=== PATIENT | male | born 1955 | race Caucasian/White ===

== ENCOUNTER 2018-11-07 04:50 | Inpatient (IN) ==
[2018-10-31 09:42] LABS: HEMATOCRIT 49.2 % (42.0-52.0); HEMOGLOBIN 16.5 g/dL (14.0-18.0); MCH 33.1 PG (27-31); MCHC 33.5 g/dL (33-37); MCV 98.6 FL (81-99); MPV 9.3 FL (7.4-10.4); RBC 4.99 XMIL (4.7-6.1); RDW 14.3 % (11.5-14.5); WBC 9.5 X1000 (4.8-10.8)
--- NOTE | 2018-10-31 09:54 | EKG Report ---
Test Performed on : 10/31/2018 09:15:00 AM Test Reason : PAT Blood Pressure : / mmHG Vent. Rate : 082 BPM Atrial Rate : 082 BPM P-R Int : 192 ms QRS Dur : 082 ms QT Int : 354 ms P-R-T Axes : 053 047 056 degrees QTc Int : 413 ms Normal sinus rhythm. Normal ECG When compared with ECG of 05-MAR-2015 08:59, No significant change was found Confirmed by Sim Gonzales MD ([id number]) on 10/31/2018 12:41:10 PM
[2018-10-31 10:16] LABS: AGAP 14; BUN 9 mg/dL (8-22); CALCIUM 9.2 mg/dL (8.8-10.2); CHLORIDE 96 mmol/L (98-107); COSMO 267; CREATININE 1.1 mg/dL (0.7-1.2); ESTIMATED GFR > 60; GLUCOSE 127 mg/dL (70-104); POTASSIUM 4.4 mmol/L (3.5-5.1); SODIUM 133 mmol/L (136-145); TCO2 23 mmol/L (25-35)
[2018-11-07] MEDS ORDERED: LR 1,000 ML ONE (05:45)
[2018-11-07] MEDS ORDERED: KEFZOL 1 GM/D5W 1 GM/50 ML IVPB ONE (05:45)
[2018-11-07] MEDS ORDERED: PAPAVERINE ONE (06:11)
[2018-11-07] MEDS ORDERED: SENSORCAINE-MPF 0.5%/EPI 1:200,000 ONE (06:12)
[2018-11-07] MEDS ORDERED: HEPARIN ONE (06:12)
[2018-11-07] MEDS ORDERED: NS 1,000 ML ONE ×2 (06:12→10:37)
[2018-11-07] MEDS ORDERED: DIPRIVAN 1% ONE (06:20)
[2018-11-07] MEDS ORDERED: FENTANYL ONE ×2 (06:21→10:14)
[2018-11-07] MEDS ORDERED: QUELICIN (DOSE) ONE (06:22)
[2018-11-07] MEDS ORDERED: SODIUM CHLORIDE 0.9% 10 ML ONE (06:22)
[2018-11-07] MEDS ORDERED: XYLOCAINE-MPF 2% ONE (06:22)
[2018-11-07] MEDS ORDERED: NORCURON ONE ×2 (06:22→08:04)
[2018-11-07] MEDS ORDERED: XYLOCAINE 2% JELLY ONE (06:24)
[2018-11-07] MEDS ORDERED: KEFZOL ONE (06:56)
[2018-11-07] MEDS ORDERED: ZOFRAN ONE (07:34)
[2018-11-07] MEDS ORDERED: DECADRON ONE (07:34)
[2018-11-07] MEDS ORDERED: OFIRMEV 1000 MG/ISOTONIC SOLN 1,000 MG/100 ML BOTTLE ONE (07:34)
[2018-11-07] MEDS ORDERED: HEPARIN (DOSE) ONE (08:13)
[2018-11-07 08:18] LABS: URINE SOURCE CATH
[2018-11-07 08:24] LABS: BILIRUBIN URINE NEGATIVE (NEGATIVE); BLOOD URINE NEGATIVE (NEGATIVE); COLOR YELLOW; GLUCOSE URINE 150 mg/dL (NEGATIVE); KETONE URINE 10 mg/dL (NEGATIVE); LEUKOCYTES URINE NEGATIVE (NEGATIVE); NITRITE URINE NEGATIVE (NEGATIVE); PROTEIN URINE NEGATIVE (NEGATIVE); SP GRAVITY URINE 1.011; TURBIDITY URINE CLEAR (CLEAR); UROBILINOGEN URINE NORMAL (NORMAL)
[2018-11-07 08:25] LABS: UR EPITHELIAL CELLS <10 /HPF (<10); URINE BACTERIA NEGATIVE /HPF; URINE RBC <10 /HPF (<10); URINE WBC <10 /HPF (<10)
[2018-11-07] MEDS ORDERED: NEO-SYNEPHRINE ONE (09:19)
[2018-11-07] MEDS ORDERED: NEOSTIGMINE ONE (09:54)
[2018-11-07] MEDS ORDERED: ROBINUL ONE (09:54)
[2018-11-07] MEDS ORDERED: NORCO-10 ONE (10:50)
--- NOTE | 2018-11-07 11:03 | OPERATIVE NOTE ---
PROCEDURE DATE: 11/07/2018 PROCEDURE PERFORMED: Right femoral to posterior tibial in situ vein bypass. SURGEON: Momo Goins MD. REPAIRING CALIBRATOR: LUCINDA Harrington. PREOPERATIVE DIAGNOSIS: Rest pain, right foot. POSTOPERATIVE DIAGNOSIS: Rest pain, right foot. INDICATIONS: This 63-year-old smoker has ischemic rest pain in the right foot. It is erythematous. It is starting to have some ulcers on the toes. He has occluded SFA and popliteal, and he appears to have some runoff in his posterior tibial artery, possibly his peroneal. There is calcium noted at the take-off of both of those vessels. The vein appeared acceptable, even though it did go to 2.1 mm just below the knee. DESCRIPTION OF OPERATION: Satisfactory general endotracheal anesthesia was achieved, the right leg was prepped and draped in a sterile fashion. The foot was excluded. The vein had previously been marked, including the branches. We made a curvilinear incision in the right groin, dissected down to the common femoral artery, surrounded with an umbilical tape. The profunda femoris was surrounded with a large vessel loop. The superficial femoral was occluded. We did not surround it with a vessel loop. Small branches were surrounded with 2-0 silks. The greater saphenous vein was identified. We dissected along the course of the david for a ways where the branches were marked and we identified the branches and ligated them with 3-0 silk ties and clipped them. We marked the vein so we would not twist it. We then turned our attention to the proximal calf and made a longitudinal incision on the medial proximal calf just posterior to the vein david. We carried our dissection into the popliteal fossa. We dissected out the tibioperoneal trunk and then followed the tibioperoneal trunk down to the bifurcation. We identified where the peroneal came off and then the proximal posterior tibia. We had to divide some of the gastrocnemius muscle in order to expose the posterior tibial for a ways. Small veins were clipped and divided so that we could identify the posterior tibial artery and I could palpate where the calcium stopped. We surrounded it with a small vessel loop. We gave the patient 8000 units of heparin systemically. After it circulated for 5 minutes, I then went back to the proximal wound of the groin and then used a Satinsky clamp on the takeoff of the greater saphenous. We amputated it there and oversewed the stump with a 5-0 Prolene stitch in 2 layers. We looked at the opening of the greater saphenous vein. No valve leaflets were identified. We chose a 4-mm punch. We then clamped off the common femoral and occluded flow in the profunda femoris and then chose a spot in the proximal SFA where we incised the artery and extended slightly with the Curtis scissors and used the 4-0 punch twice in order to make a hole adequate to do the proximal anastomosis. We then used a 5-0 Prolene stitch and did the proximal anastomosis, vein to artery. After the completion of the anastomosis, flow was established into the proximal vein, and the first valve appeared to be about 4-5 cm down the vein. One additional stitch was used for complete hemostasis. We then turned our attention distally once again, and we identified the greater saphenous vein in the superior tissue flap above our incision and we identified the vein and exposed it and marked it so we would not twist it. We identified a branch. In here, we did a small venotomy in the branch and slid our Glidewire into the artery all the way up through the proximal anastomosis. We then followed with the LeMaitre expandable valvulotome over the wire. We gently passed it up to the proximal anastomosis. We did not cross the proximal anastomosis, and opened the valvulotome and then gently pulled it down the vein, lysing the valves as we came. We did it a 2nd time and had excellent pulsatile flow. We then removed it along with the wire, and clipped off the vein at this point, and divided it and then mobilized the vein to the proximal end of the incision so that we could swing it down to the artery. We really had no extra vein length to bring it down to the artery right below the calcium. We then occluded flow in the artery with the vessel loop distally and then under 2.5 loupe magnification, I then incised the artery and extended with the Curtis scissors up into the calcified area. We then injected 5 mL of papaverine, which was actually a mixture of 4 mL of papaverine, that is 120 mg diluted to 10 mL. So, we used half of that to inject from proximal in the vein graft and let it percolate inside the vein graft. We then swung the vein graft down to the artery. We clamped off the vein graft with a bulldog clamp at the proximal end of the distal incision and then cut the vein to match the arteriotomy. We then under 2.5 loupe magnification used a 6-0 Prolene stitch beginning at the heel and going around the toe and did the distal anastomosis. Just prior to completion, we passed a 1.5, 2 and 2.5 probe down the artery and got back-bleeding from the posterior tibial artery. We flushed the vein graft and still pulsatile flow was present. We then finished the anastomosis and flow was established. One additional 6-0 Prolene stitch was used to achieve complete hemostasis. Since the vein had been marked preoperatively, no branches were noted in the thigh region that we had not already dealt with, so we did not shoot an arteriogram or seek any further branches in the thigh since they had already been marked. Good pulse was noted within the vein graft as well as the posterior tibial artery just past the anastomosis. Hemostasis appeared satisfactory. We irrigated both wounds and closed the proximal wound with 2 layers of 2-0 Polysorb in the subcutaneous tissue. We used 1 layer of 2-0 Polysorb in the distal wound in the subcutaneous tissue. We then closed the skin at each incision with 4-0 Polysorb subcuticular stitches. Sterile dressings were applied. He tolerated it well, was sent to the recovery room in satisfactory condition. cc: Momo Goins MD
[2018-11-07] MEDS ORDERED: ZOFRAN IV PRN (11:18)
[2018-11-07] MEDS: PLAVIX PO SCH (14:23)
[2018-11-07] MEDS: NORCO-10 PO PRN ×3 (14:23→23:24)
[2018-11-07] MEDS: KEFZOL 1 GM/D5W 1 GM/50 ML IVPB IV SCH ×2 (14:50→20:04)
[2018-11-07] MEDS: NS 1,000 ML IV SCH ×2 (14:51→14:53)
[2018-11-07] MEDS: DILAUDID IV PRN ×2 (17:16→20:00)
--- NOTE | 2018-11-07 19:02 | GENERAL SURGERY PROGRESS NOTE ---
DATE: 11/07/2018 TIME SEEN: 6 p.m. Mr. Sanderson has palpable graft pulses. His right foot is warmer. He is more comfortable with his foot. I am pleased with his progress thus far. cc: Momo Goins MD
[2018-11-07] MEDS: PERIDEX MT SCH (20:02)
[2018-11-07] MEDS ORDERED: PLETAL PO SCH (21:00)
[2018-11-08] MEDS: DILAUDID IV PRN ×4 (00:08→20:51)
[2018-11-08] MEDS: NORCO-10 PO PRN ×4 (05:28→22:27)
[2018-11-08 06:43] LABS: BASO# 0.02 X1000 (0.0-0.2); BASO% 0.2 % (0.0-0.8); EOS# 0.03 X1000 (0.0-0.7); EOS% 0.2 % (0.0-10.0); HEMOGLOBIN 11.8 g/dL (14.0-18.0); IMM GRAN# 0.04 X1000 (0.0-0.04); IMM GRAN% 0.3 % (0.0-0.5); LYMPH# 1.61 X1000 (1.2-3.4); LYMPH% 12.9 % (20.5-51.1); MCH 33.3 PG (27-31); MCHC 32.8 g/dL (33-37); MCV 101.7 FL (81-99); MONO# 1.32 X1000 (0.11-0.59); MONO% 10.6 % (1.7-9.3); MPV 9.4 FL (7.4-10.4); NEUT# 9.42 X1000 (1.4-6.5); NEUT% 75.8 % (42.2-75.2); PLT 241 X1000 (130-400); RBC 3.54 XMIL (4.7-6.1); RDW 14.6 % (11.5-14.5); WBC 12.44 X1000 (4.8-10.8)
[2018-11-08 07:14] LABS: AGAP 7; BUN 8 mg/dL (8-22); CALCIUM 7.6 mg/dL (8.8-10.2); CHLORIDE 104 mmol/L (98-107); COSMO 272; CREATININE 0.8 mg/dL (0.7-1.2); ESTIMATED GFR > 60; GLUCOSE 99 mg/dL (70-104); POTASSIUM 3.8 mmol/L (3.5-5.1); SODIUM 137 mmol/L (136-145); TCO2 26 mmol/L (25-35)
[2018-11-08] MEDS ORDERED: NICODERM PATCH TD PRN (07:36)
--- NOTE | 2018-11-08 07:48 | GENERAL SURGERY PROGRESS NOTE ---
DATE: 11/08/2018 SUBJECTIVE: He is postop day 1 for his right femoral to tibial in situ vein bypass. This morning, he said he slept better last night than he did the night before which was prior to the surgery. He is afebrile and his hemodynamics were good. His graft has a pulse. His foot feels reasonably normal. DIAGNOSTICS/LABS: White count today is 12,400, hemoglobin 11.8. Chemistry is fine. PLAN: The plan today will be to remove his Donis catheter. He can get out of bed. We will add Plavix to his regimen. cc: Momo Goins MD
[2018-11-08] MEDS: PLAVIX PO SCH (09:55)
[2018-11-08] MEDS: PERIDEX MT SCH ×2 (09:55→20:51)
[2018-11-08] MEDS: ASPIRIN PO SCH (09:59)
[2018-11-08] MEDS: NS 1,000 ML IV SCH (12:09)
[2018-11-08] MEDS: PRINIVIL PO SCH (14:52)
[2018-11-08] MEDS: NORVASC PO SCH (14:52)
[2018-11-09] MEDS: DILAUDID IV PRN ×4 (02:04→20:08)
[2018-11-09] MEDS: NORCO-10 PO PRN ×3 (06:45→17:37)
[2018-11-09] MEDS: PRINIVIL PO SCH (08:00)
[2018-11-09] MEDS: PERIDEX MT SCH ×2 (08:00→20:08)
[2018-11-09] MEDS: NORVASC PO SCH (08:00)
[2018-11-09] MEDS: ASPIRIN PO SCH (08:00)
[2018-11-09] MEDS: PLAVIX PO SCH (08:00)
[2018-11-09] MEDS: NS 1,000 ML IV SCH (10:40)
[2018-11-09] MEDS ORDERED: SALINE LOCK IV FLUID XX ONE (12:23)
--- NOTE | 2018-11-09 12:57 | GENERAL SURGERY PROGRESS NOTE ---
DATE: 11/09/2018 SUBJECTIVE: He is 2 days postoperative after left femoral tibial in situ vein bypass. OBJECTIVE: Vital signs: He is afebrile, heart rate 84, blood pressure 125/78. Extremities: He has a palpable graft pulse. His right foot is warm. He has been up on it. PLAN: The plan will be to continue his aspirin and Plavix. We will discharge him home tomorrow with the walker. cc: Momo Goins MD
[2018-11-10] MEDS: PLAVIX PO SCH (08:20)
[2018-11-10] MEDS: ASPIRIN PO SCH (08:20)
[2018-11-10] MEDS: NORVASC PO SCH (08:20)
[2018-11-10] MEDS: PERIDEX MT SCH (08:20)
[2018-11-10] MEDS: PRINIVIL PO SCH (08:20)
[2018-11-10] MEDS: NORCO-10 PO PRN (08:20)
--- NOTE | 2018-11-10 14:00 | GENERAL SURGERY PROGRESS NOTE ---
DATE: 11/10/2018 He is 3 days after his right femoral tibial in situ vein bypass. His right foot is significantly warmer. Graft is patent. His wounds were fine. We will allow him to go home today. He will use a walker at home. He is to stay on aspirin and Plavix. He will return to see me in the office in 5 days. cc: Momo Goins MD
--- NOTE | 2018-11-10 15:54 | Extremity Venous Study ---
PROCEDURE NAME: Vein Mapping Right GSV - 11/07/2018 PROCEDURE: Right great saphenous vein mapping. REFERRING PHYSICIAN: Dr. Goins. Outpatient. BACK HAND: Jazmin Meeks RVT. INDICATIONS: Evaluate for right femoral tibial arterial bypass. FINDINGS: The right great saphenous vein was compressible throughout its length without evidence of thrombus. It was patent throughout its length. It measured 2.4 to 3.7 mm in greatest dimension. The medial aspect of the right leg at the right knee it measured 2.1 mm; in the medial aspect of the right thigh, it measured 3.2 to 9.1 mm in greatest dimension. cc: MD Momo Nixon MD
[2018-11-10 16:25] VITALS: BP 151/97
--- NOTE | 2018-11-15 10:38 | DISCHARGE SUMMARY ---
ADMISSION DATE: 11/07/2018 DISCHARGE DATE: 11/10/2018 PRIMARY DISCHARGE DIAGNOSIS: Ischemic rest pain of the right leg. PRIMARY PROCEDURE: Right femoral to posterior tibial in situ vein bypass. HOSPITAL COURSE: Mr. Sanderson is 63 years old, sent to me by Dr. Pinon for rest pain in his right leg. He is a smoker. He was determined to have significant vascular disease with runoff via his posterior tibial artery only. So, we brought him into the hospital, mapped his greater saphenous vein and did the bypass on 11/07. Postoperatively, he did generally well. We maintained him on dual antiplatelet therapy with aspirin and Plavix. He maintained a palpable graft pulse postoperatively. We were able to get a walker to assist him with ambulation. His foot felt obviously better postop with some warmth to it. By 11/10 it was felt he could be discharged home. He is to stay on aspirin and Plavix. He will return to see me in the office in a week for a wound evaluation. I am pleased with his progress. cc: MD Dante Isabel MD
== END 2018-11-10 17:22 | disposition home or self-care (01) | DRG 254 ==
LOC: SURHOLD 04:50 → EDSTATUS 07:00 → 4N 08:29
PROVIDERS: ADMIT Surgery; ATTEND Surgery
CPT/HCPCS: 36415; 80048; 81001; 85025; 85027; 86850; 86900; 86901; 93005; 93010; 93971; 94761; 94799; A9270; J0131; J0330; J0690; J1100; J1170; J1644; J2370; J2405; J2440; J3010; J7030; J7120

== ENCOUNTER 2018-12-07 15:42 | Inpatient (IN) ==
--- NOTE | 2018-12-07 16:54 | EKG Report ---
Test Performed on : 12/07/2018 4:50:16 PM Test Reason : HYPERTENTION Blood Pressure : / mmHG Vent. Rate : 100 BPM Atrial Rate : 100 BPM P-R Int : 182 ms QRS Dur : 084 ms QT Int : 344 ms P-R-T Axes : 050 048 060 degrees QTc Int : 443 ms Normal sinus rhythm. Normal ECG When compared with ECG of 31-OCT-2018 09:15, No significant change was found Unconfirmed Result
[2018-12-07 17:22] LABS: BASO# 0.02 X1000 (0.0-0.2); BASO% 0.2 % (0.0-0.8); EOS# 0.03 X1000 (0.0-0.7); EOS% 0.3 % (0.0-10.0); HEMOGLOBIN 13.4 g/dL (14.0-18.0); IMM GRAN# 0.04 X1000 (0.0-0.04); IMM GRAN% 0.4 % (0.0-0.5); LYMPH% 14.9 % (20.5-51.1); MCH 33.8 PG (27-31); MCHC 33.5 g/dL (33-37); MONO# 1.18 X1000 (0.11-0.59); MPV 9.4 FL (7.4-10.4); NEUT# 7.84 X1000 (1.4-6.5); NEUT% 73.2 % (42.2-75.2); PLT 296 X1000 (130-400); RBC 3.96 XMIL (4.7-6.1); RDW 14.7 % (11.5-14.5); WBC 10.71 X1000 (4.8-10.8)
[2018-12-07] MEDS: ZOSYN 3.375 GM in NS 50 ML IV SCH ×2 (17:28→22:24)
[2018-12-07 17:46] LABS: AGAP 14; BUN 9 mg/dL (8-22); CALCIUM 9.6 mg/dL (8.8-10.2); CHLORIDE 98 mmol/L (98-107); COSMO 267; CREATININE 0.8 mg/dL (0.7-1.2); ESTIMATED GFR > 60; GLUCOSE 107 mg/dL (70-104); POTASSIUM 3.6 mmol/L (3.5-5.1); SODIUM 134 mmol/L (136-145); TCO2 22 mmol/L (25-35)
[2018-12-07] MEDS: VANCOMYCIN 1 GM/NS 1 GM/250 ML IVPB IV SCH (18:13)
[2018-12-07] MEDS: NORCO-10 PO PRN (18:56)
[2018-12-08] MEDS: NORCO-10 PO PRN ×5 (01:37→23:22)
[2018-12-08] MEDS: VANCOMYCIN 1 GM/NS 1 GM/250 ML IVPB IV SCH ×2 (06:22→18:42)
[2018-12-08] MEDS: ZOSYN 3.375 GM in NS 50 ML IV SCH ×4 (06:22→23:21)
[2018-12-08] MEDS: NORVASC PO SCH (08:35)
[2018-12-08] MEDS: ASPIRIN PO SCH (08:35)
[2018-12-08] MEDS: PRINIVIL PO SCH (08:36)
[2018-12-08] MEDS ORDERED: DIPRIVAN 1% ONE (09:58)
[2018-12-08] MEDS ORDERED: XYLOCAINE-MPF 2% ONE (09:58)
[2018-12-08] MEDS ORDERED: ROBINUL ONE (09:58)
[2018-12-08] MEDS ORDERED: TORADOL ONE (09:58)
[2018-12-08] MEDS ORDERED: MARCAINE 0.5% PF ONE (10:38)
[2018-12-08] MEDS: DILAUDID ONE ×8 (11:59→12:32)
--- NOTE | 2018-12-08 12:10 | OPERATIVE NOTE ---
PROCEDURE DATE: 12/08/2018 PROCEDURES: 1. Amputation right great toe through the 1st phalanx. 2. Amputation right 5th toe through the distal metatarsal. SURGEON: Momo Goins MD. STEFFEN HOUSE SUPERVISOR: Sybil. PREOPERATIVE DIAGNOSES: 1. Chronic osteomyelitis right distal 5th metatarsal with ulceration. 2. Nonhealing ulcer right great toe. DESCRIPTION OF PROCEDURE: Satisfactory general anesthesia was achieved. The right foot was prepped and draped in a sterile fashion. We made a fishmouth incision at the base of the right great toe. We carried the incision through the PIP joint. We then excised the tendinous tissue anteriorly and posteriorly, and then used a rongeur to rongeur off the distal proximal phalanx down to the mid phalanx. This gave us adequate laxity to the skin. We were able to approximate the skin edges with interrupted 3-0 nylon simple stitches. We then turned our attention to the fifth toe. We incised medially just by the medial aspect of the fifth toe, and carried our incision down to the ulcerated area. We amputated the toe through the metatarsophalangeal joint, and then used a rongeur to rongeur the metatarsal down to its mid shaft. This got rid of the exposed tendinous osteomyelitic bone. We removed the tendinous tissue as well. We copiously irrigated the wound. We were able to place one 3-0 nylon proximally, and the rest would not approximate so we just put saline gauze on the wound. We then placed Xeroform on the great toe amputation site. 4x4s and Kerlix was used to wrap the foot. He tolerated it well, and was sent to the recovery room in satisfactory condition. cc: Momo Goins MD [facility]
[2018-12-08] MEDS ORDERED: NORCO-10 ONE (12:37)
[2018-12-08] MEDS ORDERED: NS 500 ML ONE (17:59)
[2018-12-08] MEDS: LIBRIUM PO SCH (20:28)
[2018-12-08] MEDS: VITAMIN B-1 PO SCH (20:28)
--- NOTE | 2018-12-08 21:00 | CONSULTATION ---
DATE OF CONSULTATION: 12/08/2018 REFERRING PHYSICIAN: Momo Goins MD. REASON FOR CONSULT: Medical management. HISTORY OF PRESENT ILLNESS: Mr. Sanderson is a 63-year-old, gentleman, I was consulted for medical management. The patient is known case of hypertension, hyperlipidemia, peripheral vascular disease, chronic cough. The patient recently had surgery on his right leg for ischemic rest pain. The patient had a right femoral to posterior tibial bypass. The patient tolerated the procedure well. But then, patient was developing nonhealing ulcer on the right great toe, and also he had infected right 5th toe. I evaluated the patient as an outpatient. Gave him some antibiotics and pain medication. The patient was not getting any better. The patient was seen by Dr. Goins. The patient was found to have chronic osteomyelitis of the right distal 5th metatarsal with ulcerations and nonhealing ulcer right great toe. The patient underwent surgery today. Patient is complaining of pain. The patient is a known case of longstanding hypertension. The patient is on Prinivil and Norvasc, tolerating medication well. The patient does have chronic cough with scanty sputum production. At times, wheezing. No high-grade fever or chills. Denied typical chest pain or palpitations. The patient is chronic heavy smoker. The patient claims he is trying to cut down his smoking significantly. Denied abdominal pain, nausea, vomiting. The patient does have diarrhea off and on, but no blood or mucus in the stool. No dysuria or hematuria. At times urinary hesitancy. The patient denied any headache. No runny nose, stuffy nose. The patient does have problem with reflux at times. The patient does drink alcohol 8 cans of beer daily. Unquantified weight loss. No heat or cold intolerance. Denied polyuria, polydipsia. No further history available at this time. ALLERGIES: The patient is allergic to codeine. PAST MEDICAL HISTORY: Hypertension, COPD, ulcer on the right foot. Peripheral vascular disease. Polycythemia. Vitamin D deficiency. Alcohol abuse. PERSONAL HISTORY: Single. Patient does smoke. Drinks 6 to 8 cans of beer a daily. Needs minimal assistance in activities of daily living. FAMILY HISTORY: Noncontributory. REVIEW OF SYSTEMS: As per HPI. Otherwise unobtainable. Elderly, white gentleman, in mild distress. The rest from the chart. PAST SURGICAL HISTORY: The patient had tonsillectomy, cholecystectomy, surgery on his nose. FAMILY HISTORY: Father at age at 87 due to natural causes. Mother at age 79 due to lung problems. PHYSICAL EXAMINATION: General: Elderly, white gentleman in mild distress. Vital Signs: Blood pressure 149/75, pulse 65, respirations 20, temperature 98.6. Skin: No rash or petechiae. HEENT: Head atraumatic, normocephalic. Magee conjunctivae. Anicteric sclerae. Extraocular muscle movement normal. Fundus cannot be penetrated. Good oral hygiene. No tonsillopharyngeal congestion or exudate. Ears and nose benign. Neck: Supple. No JVD, thyromegaly or lymphadenopathy. Chest: Bilateral good air entry present. Bibasilar crepitation. Occasional wheezing. Cardiovascular: S1 and S2 heard. No gallop or thrill. Abdomen: Soft, scaphoid. Bowel sounds present. Extremities: No cyanosis, clubbing. No acute deep vein thrombosis. SYSTEMS SPEC: Alert, awake, able to move all 4 limbs. CONSIDERATION: Patient does have a dressed wound on the left foot. The patient does have Dupuytren's contracture on the right hand. CONSIDERATION: 1. Peripheral vascular disease. 2. Osteomyelitis of the right 5th toe, status post surgery. 3. Hypertension. 4. Hyperlipidemia. 5. Chronic obstructive pulmonary disease. 6. Alcohol abuse. LAB DATA: Reviewed. His hemoglobin 13.4, hematocrit 40, WBC count 10.71, platelet count 296. Sodium 134, potassium 3.6. PLAN: The patient had a history of alcohol abuse. I am worrying about alcohol withdrawal. Started patient on Librium. Watch for sedation. Also gave him thiamine. Will monitor blood pressure closely. DVT and GI prophylaxis. Fall precaution. Overall plan discussed with the patient and family. Continue broad-spectrum antibiotics. We will check appropriate labs. We will follow patient with you. Thanks for consult. Patient EKG result reviewed. cc: MD Momo Meyers MD
[2018-12-08] MEDS: PROTONIX IV SCH (23:22)
[2018-12-08] MEDS: SODIUM CHLORIDE 0.9% INJ SCH (23:22)
[2018-12-09] MEDS: LIBRIUM PO SCH ×5 (03:45→23:07)
[2018-12-09] MEDS: NORCO-10 PO PRN ×5 (03:58→20:17)
[2018-12-09] MEDS: ZOSYN 3.375 GM in NS 50 ML IV SCH ×3 (05:21→18:29)
[2018-12-09] MEDS: VANCOMYCIN 1 GM/NS 1 GM/250 ML IVPB IV SCH (05:21)
[2018-12-09 06:19] LABS: AGAP 9; ALKALINE PHOSPHATASE 54 U/L (32-122); BUN 8 mg/dL (8-22); CALCIUM 8.3 mg/dL (8.8-10.2); CHLORIDE 106 mmol/L (98-107); COSMO 270; CREATININE 0.7 mg/dL (0.7-1.2); ESTIMATED GFR > 60; GLUCOSE 94 mg/dL (70-104); GOT 15 U/L (10-34); GPT 10 U/L (10-44); MAGNESIUM 1.9 mg/dL (1.5-2.7); PHOSPHORUS 3.1 mg/dL (2.7-4.5); POTASSIUM 4.1 mmol/L (3.5-5.1); SODIUM 136 mmol/L (136-145); TCO2 21 mmol/L (25-35); TOTAL BILIRUBIN 0.57 mg/dL (0.20-1.00)
[2018-12-09 07:15] LABS: BASO# 0.02 X1000 (0.0-0.2); BASO% 0.2 % (0.0-0.8); EOS# 0.11 X1000 (0.0-0.7); HEMATOCRIT 39.1 % (42.0-52.0); HEMOGLOBIN 12.4 g/dL (14.0-18.0); IMM GRAN# 0.03 X1000 (0.0-0.04); IMM GRAN% 0.3 % (0.0-0.5); LYMPH# 1.53 X1000 (1.2-3.4); LYMPH% 14.3 % (20.5-51.1); MCH 33.6 PG (27-31); MCHC 31.7 g/dL (33-37); MONO# 1.06 X1000 (0.11-0.59); MONO% 9.9 % (1.7-9.3); MPV 9.4 FL (7.4-10.4); NEUT# 7.92 X1000 (1.4-6.5); NEUT% 74.3 % (42.2-75.2); PLT 191 X1000 (130-400); RBC 3.69 XMIL (4.7-6.1); RDW 14.9 % (11.5-14.5); WBC 10.67 X1000 (4.8-10.8)
--- NOTE | 2018-12-09 07:29 | PROGRESS NOTE ---
DATE: 12/09/2018 SUBJECTIVE: Mr. Sanderson is doing better. He did have good night denied. Any high-grade fever or chills. No nausea or vomiting. Denied any hallucinations or tremulousness. His pain is under control. Patient is postop day 1 for surgery on his right foot for peripheral vascular disease, osteomyelitis. OBJECTIVE: Vital Signs: Noted. Neck: Supple. No JVD. Lungs: Bilateral good air entry present. Occasional wheezing. Cardiovascular: S1 and S2 heard. Abdomen: Soft, nontender. Bowel sounds present. Central nervous system: Alert, awake, able to move all 4 limbs. Patient does have dressed wound on the right foot. Electrolytes LABORATORY DATA: Done today reviewed. Sodium 136, potassium 4.1, CO2 was 21. Magnesium 1.9. CBC result is pending. ASSESSMENT AND PLAN: I started patient on Librium to prevent alcohol withdrawal. The patient is also on bronchodilator treatment. Medical problems include hypertension, chronic obstructive pulmonary disease, alcohol abuse, weight loss, peripheral vascular disease. I am going to ask Dr. Jacob about DVT prophylaxis, we will start Lovenox if it is okay with Dr. jacob. Continue rest of the treatment. Close observation. cc: MD Momo Meyers MD
[2018-12-09] MEDS: PRINIVIL PO SCH (08:07)
[2018-12-09] MEDS: ASPIRIN PO SCH (08:08)
[2018-12-09] MEDS: VITAMIN B-1 PO SCH (08:08)
[2018-12-09] MEDS: NORVASC PO SCH (08:08)
--- NOTE | 2018-12-09 15:17 | GENERAL SURGERY PROGRESS NOTE ---
DATE: 12/09/2018 SUBJECTIVE: Mr. Sanderson is one day after amputation of his 5th toe and 1st toe. The lateral wound over his 5th toe was left open. We will treat it with a Bausch gauze twice a day. His wound culture grew out gram-negative rods. We will stop his vancomycin, continue his Zosyn. He desires a rehab bed to go to until he recuperates more fully. We will start looking for him a bed. cc: Momo Goins MD
[2018-12-09] MEDS: VENTOLIN HFA INH PRN ×2 (15:54→21:00)
[2018-12-09] MEDS: LOVENOX SUBQ SCH (18:29)
[2018-12-09] MEDS: PROTONIX IV SCH (20:17)
[2018-12-09] MEDS: SODIUM CHLORIDE 0.9% INJ SCH (20:17)
[2018-12-10] MEDS: NORCO-10 PO PRN ×6 (00:21→23:05)
[2018-12-10] MEDS: ZOSYN 3.375 GM in NS 50 ML IV SCH ×5 (00:21→23:05)
[2018-12-10] MEDS: LIBRIUM PO SCH ×3 (06:07→23:05)
--- NOTE | 2018-12-10 09:10 | PROGRESS NOTE ---
DATE: 12/10/2018 SUBJECTIVE: Mr. Sanderson is doing better. The patient claims her Librium does help his withdrawal oval and he is sleeping better. No fever or chills. The pain is under control. Mild cough. No expectoration. Denied any nausea or vomiting. No typical chest pain or palpitations. Known case of hypertension, peripheral vascular disease, COPD, gastritis. PHYSICAL EXAMINATION: Vital signs: Blood pressure 135/60, pulse 65, respirations 20, temperature 97.9 degrees. Neck: Supple. No JVD. Lungs: Bibasilar crepitations, heart S1 and S2 heard. Abdomen: Soft, nontender. Bowel sounds present. Central nervous system: Alert, awake, answering questions fairly well. Extremities: No acute DVT. LABORATORY DATA: Blood work done yesterday noted. CONSIDERATION: 1. Hypertension doing well. 2. Alcohol abuse. No evidence of DTs. 3. Gastritis and reflux disease. 4. Chronic obstructive pulmonary disease. PLAN: Will continue bronchodilator treatment. Clinically patient is doing much better. We will continue current treatment. I am going to change Protonix to p.o. Wound culture grew Proteus Encouraged patient not to restart smoking and drinking alcohol. The patient understood and agreed. cc: MD Momo Meyers MD MTDD
[2018-12-10] MEDS: ASPIRIN PO SCH (11:43)
[2018-12-10] MEDS: NORVASC PO SCH (11:43)
[2018-12-10] MEDS: PRINIVIL PO SCH (11:44)
[2018-12-10] MEDS: VITAMIN B-1 PO SCH (11:44)
--- NOTE | 2018-12-10 18:21 | GENERAL SURGERY PROGRESS NOTE ---
DATE: 12/10/2018 Mr. Sanderson' wounds look good. His lateral foot wound is granulating nicely. I am very pleased with his progress. We will continue with the Vashe gauze twice a day. We will be looking for a rehab bed and transport him there when it becomes available. cc: Momo Goins MD
[2018-12-10] MEDS: LOVENOX SUBQ SCH (18:50)
[2018-12-10] MEDS: PROTONIX IV SCH (20:40)
[2018-12-10] MEDS: SODIUM CHLORIDE 0.9% INJ SCH (20:40)
[2018-12-10] MEDS: VENTOLIN HFA INH PRN (21:25)
[2018-12-11] MEDS: VENTOLIN HFA INH PRN ×2 (03:35→20:51)
[2018-12-11] MEDS: ZOSYN 3.375 GM in NS 50 ML IV SCH ×4 (05:21→23:09)
[2018-12-11] MEDS: NORCO-10 PO PRN ×5 (05:21→21:06)
[2018-12-11] MEDS: LIBRIUM PO SCH ×4 (05:21→20:27)
--- NOTE | 2018-12-11 08:57 | GENERAL SURGERY PROGRESS NOTE ---
DATE: 12/11/2018 Mr. Sanderson is post toe amputation of the big toe and the fifth toe. His lateral wound is granulating. I am pleased with his progress. We are awaiting a rehab bed. He continues on Planet[facility] for now. cc: Momo Goins MD
[2018-12-11] MEDS: VITAMIN B-1 PO SCH (09:08)
[2018-12-11] MEDS: NORVASC PO SCH (09:08)
[2018-12-11] MEDS: ASPIRIN PO SCH (09:08)
[2018-12-11] MEDS: PRINIVIL PO SCH (09:08)
--- NOTE | 2018-12-11 09:13 | PROGRESS NOTE ---
DATE: 12/11/2018 SUBJECTIVE: Mr. Sanderson is doing better. No fevers, chills, nausea, vomiting. Pain in the right foot is improving. Mild cough with scanty sputum production. No runny nose, stuffy nose. He denied any headache. OBJECTIVE: Vital Signs: Vital signs noted. Neck: Supple. No JVD. Lungs: Bilateral good air entry present. CVS: S1 and S2 heard. Abdomen: Soft, globular. Bowel sounds present. Patient does have a dressed wound on the right foot. ASSISTANT SOFTBALL COACH: Alert, awake. Able to move all 4 limbs. PROBLEM LIST: The patient's medical problems include: 1. Hypertension, doing well. 2. Chronic obstructive pulmonary disease. 3. Alcohol abuse. 4. Gastritis and reflux disease. 5. Peripheral arterial disease. 6. Osteomyelitis, status post amputation of the two toes on the right foot. Surgeon is following wound. PLAN: Plan is to send patient to the rehab. cc: MD Momo Meyers MD
[2018-12-11] MEDS: LOVENOX SUBQ SCH (17:21)
[2018-12-11] MEDS: PROTONIX IV SCH (20:27)
[2018-12-12] MEDS: NORCO-10 PO PRN ×4 (03:58→21:57)
[2018-12-12] MEDS: ZOSYN 3.375 GM in NS 50 ML IV SCH ×3 (05:50→17:14)
--- NOTE | 2018-12-12 06:47 | PROGRESS NOTE ---
DATE: 12/12/2018 SUBJECTIVE: Mr. Sanderson is doing better. He denied any fever or chills. Mild cough. No expectoration. Denied any nausea or vomiting. Blood pressure doing better. No dysuria or hematuria. His pain is under control. OBJECTIVE: Vital Signs: Vital signs noted. Neck: Neck is supple. No JVD. Lungs: Bilateral good air entry present. CVS: S1 and S2 heard. Abdomen: Soft, nontender. Bowel sounds present. Extremities: No cyanosis, clubbing. Dressed wound on the right foot. NON EMERGENCY SERVICES AMBULANCE DRIVER: Alert, awake, able to move all 4 limbs. MEDICAL PROBLEMS: 1. Peripheral vascular disease. 2. The patient had osteomyelitis status post surgery. 3. Hypertension doing well. 4. Chronic obstructive pulmonary disease. 5. Alcohol abuse. PLAN: Overall patient is doing better. Waiting for rehab placement. We will continue current treatment and close observation. I encouraged the patient not to restart alcohol. Fall precaution. cc: MD Momo Meyers MD
[2018-12-12] MEDS: VENTOLIN HFA INH PRN (07:36)
[2018-12-12] MEDS: ASPIRIN PO SCH (08:39)
[2018-12-12] MEDS: NORVASC PO SCH (08:39)
[2018-12-12] MEDS: PRINIVIL PO SCH (08:39)
[2018-12-12] MEDS: VITAMIN B-1 PO SCH (08:39)
[2018-12-12] MEDS: LIBRIUM PO SCH ×2 (08:39→21:52)
--- NOTE | 2018-12-12 09:01 | Diag Imaging Result Doc PS360 ---
EXAM: CHEST-PORTABLE 12/12/2018 HISTORY: rehab placement TECHNIQUE: AP portable at 0824 COMMENT: The inspiration is suboptimal. There are scattered granulomata. There are calcified nodes in the right tracheobronchial and hilar region. Other than degree of inspiration there has been no significant change since 01/08/2016. IMPRESSION: Stable chest. Electronically signed by Matty Fontanez 12/12/2018 8:58 AM
--- NOTE | 2018-12-12 10:41 | GENERAL SURGERY PROGRESS NOTE ---
DATE: 12/12/2018 SUBJECTIVE: Mr. Sanderson is doing well. His hemodynamics are good. His wound has continued to improve with granulation tissue laterally. He continues on Zosyn because of his culture report of Proteus in the wound. We are awaiting a bed. As soon as a bed is available, we should be able to discharge him to rehab, and he would be able to take Levaquin as an outpatient and complete his course of antibiotic therapy as an outpatient. I am pleased with his progress. cc: Momo Goins MD
[2018-12-12] MEDS: LOVENOX SUBQ SCH (17:14)
[2018-12-12] MEDS: PROTONIX PO SCH (21:52)
[2018-12-13] MEDS: ZOSYN 3.375 GM in NS 50 ML IV SCH ×4 (01:05→17:32)
[2018-12-13] MEDS: NORCO-10 PO PRN ×4 (06:27→21:59)
--- NOTE | 2018-12-13 07:14 | PROGRESS NOTE ---
DATE: 12/13/2018 SUBJECTIVE: Mr. Sanderson is doing better. No high-grade fever or chills. Denied any nausea or vomiting. The patient does have chronic cough with scanty sputum production. Oral intake is good. No dysuria or hematuria. No history suggestive of DTs or hallucinations. OBJECTIVE: Vital Signs: Noted. Neck: Supple. No JVD. Lungs: Bilateral good air entry present. Occasional wheezing. CVS: S1 and S2 heard. Abdomen: Soft, nontender. Bowel sounds present. NAPPER GRINDER: Alert, awake, able to move all 4 limbs. Answering questions fairly well. CONSIDERATION: The patient's problems include hypertension, clinically doing better, hyperlipidemia, peripheral vascular disease, COPD, alcohol abuse. I am going to decrease Librium to once a day. Continue rest of the treatment. Check appropriate labs. We are waiting for rehab bed for the patient to be discharged. cc: MD Momo Meyers MD
[2018-12-13 07:22] LABS: BASO# 0.03 X1000 (0.0-0.2); BASO% 0.4 % (0.0-0.8); EOS# 0.18 X1000 (0.0-0.7); EOS% 2.2 % (0.0-10.0); HEMATOCRIT 36.2 % (42.0-52.0); HEMOGLOBIN 12.1 g/dL (14.0-18.0); LYMPH# 1.53 X1000 (1.2-3.4); MCHC 33.4 g/dL (33-37); MCV 104.6 FL (81-99); MONO# 0.92 X1000 (0.11-0.59); MONO% 11.4 % (1.7-9.3); MPV 9.6 FL (7.4-10.4); NEUT# 5.38 X1000 (1.4-6.5); PLT 172 X1000 (130-400); RBC 3.46 XMIL (4.7-6.1); RDW 14.7 % (11.5-14.5); WBC 8.04 X1000 (4.8-10.8)
[2018-12-13 07:35] LABS: AGAP 10; ALB/GLOB RATIO 1.1; ALBUMIN 3.5 g/dL (3.5-5.0); ALKALINE PHOSPHATASE 47 U/L (32-122); BUN 8 mg/dL (8-22); CALCIUM 9.5 mg/dL (8.8-10.2); CHLORIDE 104 mmol/L (98-107); COSMO 283; CREATININE 0.7 mg/dL (0.7-1.2); ESTIMATED GFR > 60; GLUCOSE 91 mg/dL (70-104); GOT 18 U/L (10-34); GPT 13 U/L (10-44); SODIUM 143 mmol/L (136-145); TCO2 29 mmol/L (25-35); TOTAL BILIRUBIN 0.36 mg/dL (0.20-1.00); TOTAL PROTEIN 6.8 g/dL (6.3-8.3)
[2018-12-13] MEDS: NORVASC PO SCH (09:24)
[2018-12-13] MEDS: ASPIRIN PO SCH (09:24)
[2018-12-13] MEDS: PRINIVIL PO SCH (09:24)
[2018-12-13] MEDS: VITAMIN B-1 PO SCH (09:24)
--- NOTE | 2018-12-13 16:07 | GENERAL SURGERY PROGRESS NOTE ---
DATE: 12/13/2018 Mr. Sanderson' wound looks good. It is granulating nicely. The amputation site looks good. We are awaiting a bed for rehabilitation referral. cc: Momo Goins MD
[2018-12-13] MEDS: LOVENOX SUBQ SCH (17:33)
[2018-12-13] MEDS ORDERED: LIBRIUM PO SCH (21:00)
[2018-12-13] MEDS: PROTONIX PO SCH (22:04)
[2018-12-14] MEDS: ZOSYN 3.375 GM in NS 50 ML IV SCH ×3 (00:50→11:59)
[2018-12-14] MEDS: NORCO-10 PO PRN ×3 (01:38→10:32)
[2018-12-14] MEDS: NORVASC PO SCH (09:19)
[2018-12-14] MEDS: ASPIRIN PO SCH (09:19)
[2018-12-14] MEDS: PRINIVIL PO SCH (09:19)
[2018-12-14] MEDS: VITAMIN B-1 PO SCH (09:19)
[2018-12-14 11:10] VITALS: BP 108/67
--- NOTE | 2018-12-14 12:58 | DISCHARGE SUMMARY ---
ADMISSION DATE: 12/07/2018 DISCHARGE DATE: FINAL DISCHARGE DIAGNOSES: 1. Chronic osteomyelitis of the right distal fifth metatarsal with ulceration. 2. Nonhealing ulcer of the right great toe. 3. The patient had an amputation of the right great toe through the first phalanx, amputation the right fifth toe through the distal metatarsal. 4. Peripheral vascular disease. 5. Hypertension. 6. Hyperlipidemia. 7. Chronic obstructive pulmonary disease. 8. Alcohol abuse. 9. Gastritis. HISTORY OF PRESENT ILLNESS AND HOSPITAL COURSE: Mr. Sanderson is a 63-year-old, white gentleman who recently had femorotibial bypass done on the right side. The patient was developing infection on the right great toe. We did try to treat him with antibiotics and supportive care. The patient was not getting better. The patient was evaluated by a surgeon. The patient was admitted to the hospital and underwent the above surgery. Tolerated the procedure well. I was consulted for medical management. The patient is doing better. He denied any fevers, chills, nausea, vomiting. Oral intake was good. No unusual cough or expectoration. Surgeon's recommendation was to send the patient for short-term rehab and wound care, and patient decided to go to a local residential. Overall, the patient is doing better. His wound is also looking better. PHYSICAL EXAMINATION: Vital Signs: Blood pressure 108/67, pulse 78, respirations 18, temperature 98.7 degrees. Neck: Supple. No JVD. Lungs: Bilateral good air entry present. CVS: S1 and S2 heard. Abdomen: Soft, nontender. Bowel sounds present. DIESEL TRACTOR ENGINE MECHANIC: Alert, awake. Able to move all 4 limbs. O2 saturation on room air was 97%. LAB DATA: Done yesterday, hemoglobin 12.1, hematocrit 36.2, WBC count 8.04, platelet count 172,000. Electrolytes were fairly benign. His chest x-ray was stable chest. DISCHARGE INSTRUCTIONS: Overall, patient received maximum benefit of hospitalization. Discharge orders as per separate sheet. Wound care as per Dr. Goins. We will continue current treatment. Close observation. The patient will be followed up by Dr. Pinon. Follow up with Dr. Goins as scheduled. In case of more distress, call us back or go to the emergency room. cc: MD Momo Meyers MD
== END 2018-12-14 15:11 | DRG 475 ==
LOC: DIRADM 15:42 → 4N 15:48
PROVIDERS: ADMIT Surgery; ATTEND Surgery
CPT/HCPCS: 71010; 71045; 80048; 80053; 83735; 84100; 85025; 87070; 87077; 87186; 88305; 93005; 93010; 94640; 94760; 94761; 94799; A9270; C9113; J1170; J1650; J1885; J2543; J3370; J7040; S0020; S0164

== ENCOUNTER 2019-03-02 06:22 | Day surgery (SDC) ==
[2019-02-23 09:05] LABS: HEMATOCRIT 54.1 % (42.0-52.0); MCH 33.2 PG (27-31); MCHC 33.3 g/dL (33-37); MCV 99.8 FL (81-99); MPV 9.8 FL (7.4-10.4); RBC 5.42 XMIL (4.7-6.1); RDW 15.1 % (11.5-14.5); WBC 12.22 X1000 (4.8-10.8)
[2019-02-23 09:35] LABS: AGAP 13; BUN 9 mg/dL (8-22); CALCIUM 9.4 mg/dL (8.8-10.2); CHLORIDE 101 mmol/L (98-107); COSMO 280; ESTIMATED GFR > 60; GLUCOSE 131 mg/dL (70-104); POTASSIUM 4.5 mmol/L (3.5-5.1); SODIUM 140 mmol/L (136-145); TCO2 26 mmol/L (25-35)
[2019-03-02] MEDS ORDERED: LR 1,000 ML ONE ×2 (07:08→11:03)
[2019-03-02] MEDS ORDERED: KEFZOL 1 GM/D5W 1 GM/50 ML IVPB ONE (07:08)
[2019-03-02] MEDS ORDERED: FENTANYL ONE (07:25)
[2019-03-02] MEDS ORDERED: ROBINUL ONE (07:25)
[2019-03-02] MEDS ORDERED: ZOFRAN ONE (07:25)
[2019-03-02] MEDS ORDERED: XYLOCAINE-MPF 2% ONE (07:25)
[2019-03-02] MEDS ORDERED: DIPRIVAN 1% ONE (07:25)
[2019-03-02] MEDS ORDERED: SODIUM CHLORIDE 0.9% 0 ML ONE (07:26)
[2019-03-02] MEDS ORDERED: QUELICIN (DOSE) ONE (07:26)
[2019-03-02] MEDS ORDERED: NORCURON ONE (07:26)
[2019-03-02] MEDS ORDERED: PAPAVERINE ONE (07:45)
[2019-03-02] MEDS ORDERED: HEPARIN ONE (07:54)
[2019-03-02] MEDS ORDERED: KEFZOL ONE (07:54)
[2019-03-02] MEDS ORDERED: MARCAINE 0.25% PF/EPI 1:200,000 ONE (07:54)
[2019-03-02] MEDS ORDERED: NS 2,000 ML ONE (07:55)
[2019-03-02] MEDS ORDERED: PEPCID ONE (08:08)
[2019-03-02] MEDS ORDERED: DECADRON ONE (08:20)
[2019-03-02] MEDS ORDERED: HEPARIN (DOSE) ONE ×2 (08:41→09:37)
[2019-03-02] MEDS ORDERED: EPHEDRINE ONE (08:42)
[2019-03-02] MEDS ORDERED: SODIUM CHLORIDE 0.9% 10 ML ONE (08:42)
[2019-03-02 09:55] LABS: URINE SOURCE CATH
[2019-03-02 10:00] LABS: BILIRUBIN URINE NEGATIVE (NEGATIVE); BLOOD URINE NEGATIVE (NEGATIVE); COLOR YELLOW; GLUCOSE URINE NEGATIVE (NEGATIVE); KETONE URINE NEGATIVE (NEGATIVE); LEUKOCYTES URINE NEGATIVE (NEGATIVE); NITRITE URINE NEGATIVE (NEGATIVE); PH URINE 5.5; PROTEIN URINE NEGATIVE (NEGATIVE); SP GRAVITY URINE 1.012; TURBIDITY URINE CLEAR (CLEAR); UR EPITHELIAL CELLS <10 /HPF (<10); URINE BACTERIA NEGATIVE /HPF; URINE RBC <10 /HPF (<10); URINE WBC <10 /HPF (<10); UROBILINOGEN URINE NORMAL (NORMAL)
[2019-03-02] MEDS: LR 1,000 ML IV SCH ×2 (11:44→23:56)
--- NOTE | 2019-03-02 13:40 | OPERATIVE NOTE ---
PROCEDURE DATE: 03/02/2019 PROCEDURE PERFORMED: 1. Open thrombectomy, right femorotibial bypass. 2. Excisional debridement of right great toe amputation with revision. SURGEON: Momo Goins MD. HELP DESK REP: Dylan Khalil RN. PREOPERATIVE DIAGNOSES: 1. Thrombosis of right femorotibial graft. 2. Necrosis of the right great toe amputation site. 3. Patent arteriovenous fistula. POSTOPERATIVE DIAGNOSES: 1. Thrombosis of right femorotibial graft. 2. Necrosis of the right great toe amputation site. 3. Patent arteriovenous fistula. DESCRIPTION OF PROCEDURE: The right leg and foot were prepped and draped in a sterile fashion. We covered the foot and addressed the femorotibial bypass graft first. We ultra-sounded the graft, identified the site of thrombosis where the branch came off. We anesthetized the skin. Made a longitudinal incision. Exposed the vein graft. Identified the branch. We gave the patient 5000 units of heparin systemically. We surrounded the vein graft with vessel loops proximally and distally. A 2-0 silk was used to surround the branch. We then did a graft vein graftotomy with an 11 blade. We passed our 3 Amanda distally but it hung up around the knee. We removed what clot we could. Since we could not get the 3 Amanda to go all the way through the anastomosis, then we used a Glidewire and were able to traverse the vein graft and the anastomosis into the draining artery. We passed our AngioJet and then evacuated clot from the vein graft. We then shot an arteriogram and this showed patency but narrowing of the vein graft. We did not have a 3 Saber balloon because of our recent loss of supplies so I passed a 3 Amanda and was able to go through the vein graft, through the anastomosis, into the [place] artery. I actually superiorly slightly dilated the vein graft from distal to proximal. Completion arteriography showed a small disruption in the vein at the knee where there was a valve. We went ahead and closed the graftotomy with flow present. I then made a longitudinal incision over the area of disruption. One small branch was ligated. I lost the pulse distally. Once again, made another transverse graftotomy here. We were able to pass a 1, 1.5, 2, and even a 2.5 dilator distally. There was no ongoing bleeding at the area where the vein had been mildly disrupted. We were able to restore flow. The vein graftotomy was closed with a 7-0 Prolene stitch. Gave an additional 1000 units of heparin. We then left the vein branch open that had been opened in order to give the graft a chance to stay open if the portion that we had operated on around the knee failed. We then closed the wound with 3-0 Polysorb in the subcutaneous tissue and the skin was closed with a 4-0 Polysorb subcuticular stitch. Telfa and sterile OpSite was applied. I then exposed the foot, incised the tissue at the edge of the viable tissue to the necrotic tissue, and carried it all the way to the bone. We removed the necrotic tissue. We removed the phalanx all the way down to the metatarsophalangeal joint. This had removed all the diseased tissue. We irrigated it out copiously. Then was able to close the skin with interrupted 3-0 nylon simple stitches. Xeroform, sterile 4x4s were applied. He tolerated the procedure satisfactorily and was sent to the recovery room in satisfactory condition. cc: Momo Goins MD
[2019-03-02] MEDS: NORCO-10 PO PRN ×2 (16:00→20:37)
--- NOTE | 2019-03-02 19:38 | GENERAL SURGERY PROGRESS NOTE ---
DATE: 03/02/2019 He has a palpable graft pulse. We will keep him on antibiotics tonight. Recheck it tomorrow. I did discuss with him the fact we may have to do a revision of his distal graft at some point. Time will tell. He understands. cc: Momo Goins MD
[2019-03-02] MEDS: KEFZOL 1 GM/D5W 1 GM/50 ML IVPB IV SCH (19:44)
[2019-03-02] MEDS: ELIQUIS PO SCH (20:37)
[2019-03-02] MEDS: ZOFRAN IV PRN (20:37)
[2019-03-03] MEDS: NORCO-10 PO PRN ×3 (00:16→10:03)
[2019-03-03] MEDS: KEFZOL 1 GM/D5W 1 GM/50 ML IVPB IV SCH ×2 (04:00→09:55)
[2019-03-03] MEDS: ZOFRAN IV PRN (04:16)
[2019-03-03 06:32] LABS: BASO# 0.02 X1000 (0.0-0.2); BASO% 0.1 % (0.0-0.8); EOS# 0.03 X1000 (0.0-0.7); EOS% 0.2 % (0.0-10.0); HEMATOCRIT 47.3 % (42.0-52.0); HEMOGLOBIN 15.7 g/dL (14.0-18.0); IMM GRAN# 0.02 X1000 (0.0-0.04); IMM GRAN% 0.1 % (0.0-0.5); LYMPH# 1.64 X1000 (1.2-3.4); LYMPH% 12.3 % (20.5-51.1); MCH 33.1 PG (27-31); MCHC 33.2 g/dL (33-37); MCV 99.6 FL (81-99); MONO# 1.37 X1000 (0.11-0.59); MONO% 10.3 % (1.7-9.3); MPV 10.1 FL (7.4-10.4); NEUT# 10.28 X1000 (1.4-6.5); PLT 215 X1000 (130-400); RBC 4.75 XMIL (4.7-6.1); RDW 14.8 % (11.5-14.5); WBC 13.36 X1000 (4.8-10.8)
[2019-03-03] MEDS ORDERED: NORVASC PO SCH (09:00)
[2019-03-03] MEDS ORDERED: PRINIVIL PO SCH (09:00)
[2019-03-03] MEDS ORDERED: ASPIRIN PO SCH (09:00)
[2019-03-03] MEDS: ELIQUIS PO SCH (09:55)
[2019-03-03 11:05] VITALS: BP 144/63
[2019-03-03] MEDS ORDERED: KEFLEX PO SCH (14:00)
--- NOTE | 2019-03-03 14:45 | GENERAL SURGERY PROGRESS NOTE ---
DATE: 03/03/2019 The patient is afebrile, heart rate 79, blood pressure 151/75. He has a palpable graft pulse. His wounds are inspected and are redressed. I will discharge him home. He will go home on Eliquis in addition to his previous medications. He will also stay on Keflex for a few days. Wound care was discussed. He will return to the office in 2 weeks. cc: Momo Goins MD
== END 2019-03-03 14:36 | disposition home or self-care (01) ==
LOC: OPS 06:22 → 4N 06:22 → VAS 06:22 → OPS 03-03 14:36
PROVIDERS: ATTEND Surgery
CPT/HCPCS: 80048; 81001; 85025; 85027; 88304; 93971; 94761; 94799; A9270; J0330; J0690; J1100; J1644; J2405; J2440; J3010; J7030; J7120; Q9967; S0020; S0028

== ENCOUNTER 2019-03-15 10:49 | Inpatient (IN) ==
[2019-03-15] MEDS ORDERED: NS 1,000 ML IV SCH (12:00)
[2019-03-15 12:07] LABS: HEMATOCRIT 46.3 % (42.0-52.0); HEMOGLOBIN 15.4 g/dL (14.0-18.0); MCH 32.6 PG (27-31); MCHC 33.3 g/dL (33-37); MCV 97.9 FL (81-99); MPV 9.6 FL (7.4-10.4); RBC 4.73 XMIL (4.7-6.1); WBC 12.99 X1000 (4.8-10.8)
[2019-03-15 12:59] LABS: AGAP 15; BUN 11 mg/dL (8-22); CALCIUM 9.6 mg/dL (8.8-10.2); CHLORIDE 95 mmol/L (98-107); COSMO 270; CREATININE 0.9 mg/dL (0.7-1.2); ESTIMATED GFR > 60; GLUCOSE 104 mg/dL (70-104); SODIUM 135 mmol/L (136-145); TCO2 25 mmol/L (25-35)
[2019-03-15] MEDS: NORCO-10 PO PRN ×3 (13:22→21:32)
[2019-03-15] MEDS: VANCOMYCIN 1 GM/NS 1 GM/250 ML IVPB IV SCH (15:42)
--- NOTE | 2019-03-15 16:56 | EKG Report ---
Test Performed on : 03/15/2019 4:51:08 PM Test Reason : CP Blood Pressure : / mmHG Vent. Rate : 067 BPM Atrial Rate : 067 BPM P-R Int : 192 ms QRS Dur : 090 ms QT Int : 388 ms P-R-T Axes : 046 037 054 degrees QTc Int : 409 ms Normal sinus rhythm. Normal ECG When compared with ECG of 07-DEC-2018 16:50, Vent. rate has decreased BY 33 BPM Confirmed by Shanice ORNELAS, Sanju Phipps ([id number]) on 03/16/2019 5:09:05 PM
[2019-03-15] MEDS: LIBRIUM PO SCH (17:37)
[2019-03-15] MEDS: M.V.I.-12 10 ML, FOLIC ACID 1 MG, MAGNESIUM SULFATE 1 GM, THIAMINE 100 MG in NS 1,000 ML IV SCH (18:16)
[2019-03-15] MEDS: CLINDAMYCIN 600 MG/D5W 600 MG/50 ML IVPB IV SCH (18:43)
--- NOTE | 2019-03-15 20:01 | CONSULTATION ---
DATE OF CONSULTATION: 03/15/2019 REASON FOR REFERRAL: Medical management. HISTORY OF PRESENT ILLNESS: Mr. Sanderson is a 64-year-old white gentleman admitted with infected right great toe. The patient is known case of peripheral vascular disease. The patient did have femorotibial bypass graft done. The patient has infection on the right great toe. It does have foul smelling odor, some cellulitis on the right foot. The patient evaluated by surgeon, admitted for further care. The patient recently had opened thrombectomy, right femorotibial bypass, excisional debridement of right great toe, amputation with revision. The patient denied any high- grade fever. The patient does have a low-grade fever and chills. Local redness on the right foot. Complaining of pain in the right foot. No nausea or vomiting. The patient denied any dysuria or hematuria. No diarrhea, blood, or mucus in the stool. Denied abdominal pain, nausea, vomiting. No runny nose, stuffy nose, sinus drainage. Denied any headache. No heat or cold intolerance. The patient does have burning pain in the feet, history suggestive of intermittent claudication. The patient does drink alcohol 6 to 8 cans of beer every day. Unquantified weight loss. No further history available at this time. ALLERGIES: The patient is allergic to codeine. PAST MEDICAL HISTORY: Hypertension, hyperlipidemia, peripheral vascular disease, BPH. Patient had femorotibial bypass done, excisional debridement of right great toe amputation with revision, tobacco abuse. HOME MEDICATIONS: Include Norvasc, Eliquis, aspirin, lisinopril, Prilosec. PERSONAL HISTORY: Single. Patient use to smoke, quit few months ago. Drinks alcohol 6 to 8 cans of beer a day. Denied substance abuse. Fairly independent in activities of daily living. FAMILY HISTORY: Noncontributory. REVIEW OF SYSTEMS: As per HPI. PAST SURGICAL HISTORY: Cholecystectomy, tonsillectomy, surgery on the nose. PHYSICAL EXAMINATION: General: Elderly white gentleman in no acute distress. Vital Signs: Blood pressure 142/68, pulse 88, respirations 16, temperature 100.3 degrees. Skin: Patient does have nonhealing ulcer right great toe with some necrosis. Patient does have foul-smelling drainage. HEENT: Head atraumatic, normocephalic. [place] conjunctivae. Anicteric sclerae. Extraocular muscle movement normal. Fundus cannot be penetrated. Good oral hygiene. No tonsillopharyngeal congestion or exudate. Ears and nose benign. Neck: Supple. No JVD, thyromegaly or lymphadenopathy. Chest: Bibasilar crepitation, occasional wheezing. Cardiovascular: S1 and S2 heard. No gallop or thrill. Abdomen: Soft. No distention. Bowel sounds present. No organomegaly or mass. Extremities: No cyanosis, clubbing. No acute DVT. Peripheral pulsation intact. The patient does have dressed wound on the right foot. I cannot feel dorsalis pedis or posterior tibial on the right foot. Central nervous system: Alert, awake, answering questions fairly well. Able to move all 4 limbs. CONSIDERATION: A 64-year-old, white gentleman, known case of peripheral vascular disease admitted with infected right great toe amputation. The patient does have foul-smelling discharge. I am concerned about anaerobic infection. His other problems include hypertension, alcohol abuse. The patient does have low-grade fever, gastritis. Patient's lab data revealed leukocytosis, WBC count 12.99, hemoglobin 15.4, hematocrit 46.3. Platelet count was 438,000. Electrolytes were fairly benign. The patient is on vancomycin. I added clindamycin for anaerobic coverage. The patient is scheduled to have CT angiogram of aorta with runoff. Local wound care. I will give him banana bag, watch him for alcohol withdrawal, Librium, close observation. Continue home medicine, pain management. Thanks for consult. cc: MD Momo Meyers MD
[2019-03-15] MEDS: ELIQUIS PO SCH (20:54)
[2019-03-16] MEDS: VANCOMYCIN 1 GM/NS 1 GM/250 ML IVPB IV SCH ×2 (00:37→12:16)
[2019-03-16] MEDS: LIBRIUM PO SCH ×3 (00:37→16:45)
[2019-03-16] MEDS: NORCO-10 PO PRN ×6 (01:38→22:36)
[2019-03-16] MEDS: CLINDAMYCIN 600 MG/D5W 600 MG/50 ML IVPB IV SCH ×3 (02:53→17:49)
[2019-03-16] MEDS: PRILOSEC PO SCH ×2 (05:42→06:43)
[2019-03-16 06:13] LABS: BASO# 0.07 X1000 (0.0-0.2); BASO% 0.7 % (0.0-0.8); EOS# 0.18 X1000 (0.0-0.7); EOS% 1.9 % (0.0-10.0); HEMATOCRIT 41.6 % (42.0-52.0); HEMOGLOBIN 13.8 g/dL (14.0-18.0); IMM GRAN# 0.03 X1000 (0.0-0.04); IMM GRAN% 0.3 % (0.0-0.5); LYMPH# 2.08 X1000 (1.2-3.4); LYMPH% 22.2 % (20.5-51.1); MCH 32.9 PG (27-31); MCHC 33.2 g/dL (33-37); MONO# 1.31 X1000 (0.11-0.59); MPV 10.1 FL (7.4-10.4); NEUT% 60.9 % (42.2-75.2); PLT 363 X1000 (130-400); RDW 14.8 % (11.5-14.5); WBC 9.37 X1000 (4.8-10.8)
[2019-03-16 06:35] LABS: AGAP 15; ALB/GLOB RATIO 0.7; ALBUMIN 2.9 g/dL (3.5-5.0); ALKALINE PHOSPHATASE 60 U/L (32-122); BUN 11 mg/dL (8-22); CALCIUM 9.3 mg/dL (8.8-10.2); CHLORIDE 99 mmol/L (98-107); COSMO 271; CREATININE 0.7 mg/dL (0.7-1.2); ESTIMATED GFR > 60; GLUCOSE 94 mg/dL (70-104); GOT 37 U/L (10-34); GPT 15 U/L (10-44); MAGNESIUM 2.4 mg/dL (1.5-2.7); POTASSIUM 4.4 mmol/L (3.5-5.1); SODIUM 136 mmol/L (136-145); TCO2 22 mmol/L (25-35); TOTAL BILIRUBIN 0.29 mg/dL (0.20-1.00)
--- NOTE | 2019-03-16 07:04 | PROGRESS NOTE ---
DATE: 03/16/2019 SUBJECTIVE: Mr. Sanderson is doing fair. The patient does have some pain in the right foot. No high- grade fever or chills. Denied any nausea or vomiting. Patient admitted with infected right great toe. No symptoms suggestive of confusion, hallucination, or withdrawal from alcohol. His vital signs are noted. The patient claims Librium seems to be helping. OBJECTIVE: Neck: Supple. No JVD. Lungs: Bibasilar crepitation. Heart: S1 and S2 heard. Abdomen: Soft, nontender. Bowel sounds present. TYPING OFFICE WORKER: Alert, awake. Able to move all 4 limbs. LABORATORY DATA: WBC count 9.37, hemoglobin 13.8, hematocrit 41.6, platelet 363,000. Electrolytes were fairly benign. Potassium 4.4. CONSIDERATION: 1. Peripheral vascular disease. 2. Infected right great toe. 3. Hypertension. 4. Alcohol abuse. Labs and medication noted. Will continue current treatment, close observation. cc: MD Momo Meyers MD
[2019-03-16] MEDS: ASPIRIN PO SCH (08:35)
[2019-03-16] MEDS: NORVASC PO SCH (08:36)
[2019-03-16] MEDS: ELIQUIS PO SCH ×2 (08:36→21:20)
[2019-03-16] MEDS: PRINIVIL PO SCH (08:36)
--- NOTE | 2019-03-16 08:54 | Diag Imaging Result Doc PS360 ---
EXAM: CT ANGIOGRAM AORTA W/RUNOFF 03/16/2019 HISTORY: evaluate runoff TECHNIQUE: This exam was performed using automated exposure control, adjustment of mA or kV according to patient size, and/or use of iterative reconstruction technique. COMMENT: The current examination is compared with the previous study of 10/05/2018. There are platelike atelectatic opacities present in the right lower lobe which were not present previously. There are calcified granuloma in the right lower lobe. There are calcifications in the celiac artery particularly in the ostium and in the ostium of the superior mesenteric artery. There is dense calcification in the ostium of the right renal artery. The possibility of right renal artery stenosis cannot be excluded. The left renal artery is widely patent. There are some calcifications in the more distal branches of the renal arteries bilaterally. There is no evidence of aneurysm. The inferior mesenteric artery appears to be patent. The common and external iliac arteries are patent. There is calcification of the seminal vesicles and vasa deferentia. The urinary bladder is not distended. There is no evidence of bowel obstruction or appendicitis. There is some perinephric stranding bilaterally which was not as evident on the previous examination. The kidneys are lobulated in appearance with areas of cortical thinning which was also present at the time the previous study. The possibility of chronic pyelonephritis cannot be excluded. The adrenal glands and spleen are not enlarged. The pancreas is unremarkable. There is occlusion of the left superficial femoral artery at its origin. Reconstitution is present at the level of the popliteal artery with calcifications and areas of noncalcified plaque in the distal popliteal and tibioperoneal vessels. There is apparent proximal occlusion of the left posterior tibial artery with runoff in the peroneal and anterior tibial to the ankle. On the right side, there is apparently much faster flow with some venous return being visible. Some of this may be due to arteriovenous shunting however. There is occlusion of the superficial femoral artery at its origin and there is a femoral saphenous vein graft which is patent, at least as far as the distal thigh. There is a fluid collection in the subcutaneous tissues adjacent to the saphenous vein around image 232 of the 3 mm series. This measures 2.8 x 1.6 cm in the axial plane and 4.9 cm in superior-inferior dimension. This may be a hematoma. It was not present at the time the previous study. There is reconstitution of the peroneal and posterior tibial artery below the level of the tibial peroneal trunk and there is some contrast presumably due to collateral flow in the anterior tibial. There is apparent runoff in all three vessels to below the ankle. IMPRESSION: 1. Improved distal runoff on the right. Postsurgical changes in the right leg as described. Bilateral superficial femoral artery occlusion. 2. Perinephric stranding bilaterally. The possibility of chronic pyelonephritis cannot be excluded. Electronically signed by Matty Fontanez 03/16/2019 8:52 AM
--- NOTE | 2019-03-16 14:09 | GENERAL SURGERY PROGRESS NOTE ---
DATE: 03/16/2019 SUBJECTIVE: CTA shows his distal vein graft to be occluded. The branch is keeping it open. It appears we will need about 30 cm of vein to bypass the occlusion and carry it on down to his posterior tibial artery. So, I will image his lesser saphenous to see if it is usable. If not, we may have to use a cadaver vein. cc: Momo Goins MD
[2019-03-16] MEDS: M.V.I.-12 10 ML, FOLIC ACID 1 MG, MAGNESIUM SULFATE 1 GM, THIAMINE 100 MG in NS 1,000 ML IV SCH (17:49)
[2019-03-17] MEDS: LIBRIUM PO SCH ×3 (02:24→17:18)
[2019-03-17] MEDS: VANCOMYCIN 1 GM/NS 1 GM/250 ML IVPB IV SCH (02:24)
[2019-03-17] MEDS: CLINDAMYCIN 600 MG/D5W 600 MG/50 ML IVPB IV SCH ×2 (03:25→11:12)
[2019-03-17] MEDS: NORCO-10 PO PRN ×4 (03:25→17:18)
[2019-03-17] MEDS: PRILOSEC PO SCH (06:34)
[2019-03-17] MEDS ORDERED: VANCOMYCIN IV PER PHARMACY MISC SCH (06:45)
--- NOTE | 2019-03-17 07:39 | PROGRESS NOTE ---
DATE: 03/17/2019 SUBJECTIVE: Mr. Sanderson is doing fair complaining of pain in the right foot. The patient does have some foul-smelling discharge. No high-grade fever or chills. The patient did have some chills, low-grade fever up to 100.4, mild cough, no expectoration, no dysuria or hematuria. The patient had aortogram with runoff yesterday, result reviewed. OBJECTIVE: Vital signs: T-max yesterday was 100.4. Dressed wound on the right foot. Neck: Supple. No JVD. Lungs: Bilateral good air entry present. CV: S1 and S2 heard. Abdomen: Soft, nontender, bowel sounds present. OPERATIONS INTERN: Alert, awake, answering questions well. No symptoms suggestive of alcohol withdrawal. CONSIDERATION: 1. Infected wound right foot. 2. Peripheral vascular disease, Dr. Goins managing it. 3. Hypertension. 4. Alcohol abuse. PLAN: Will continue current treatment. I will let pharmacist to manage vancomycin. Continue rest of the treatment. Close observation. Overall plan discussed with the patient and he is in agreement. cc: MD Momo Meyers MD
[2019-03-17] MEDS: ASPIRIN PO SCH (08:39)
[2019-03-17] MEDS: NORVASC PO SCH (08:40)
[2019-03-17] MEDS: PRINIVIL PO SCH (08:40)
[2019-03-17] MEDS: ELIQUIS PO SCH (08:40)
[2019-03-17] MEDS ORDERED: VANCOMYCIN 1,700 MG in NS 250 ML IV SCH (13:00)
[2019-03-17] MEDS: CLINDAMYCIN 900 MG/D5W 900 MG/50 ML IVPB IV SCH (17:18)
[2019-03-17] MEDS: M.V.I.-12 10 ML, FOLIC ACID 1 MG, MAGNESIUM SULFATE 1 GM, THIAMINE 100 MG in NS 1,000 ML IV SCH (18:01)
--- NOTE | 2019-03-17 20:04 | GENERAL SURGERY PROGRESS NOTE ---
DATE: 03/17/2019 Mr. Sanderson does not have a residual vein in his right leg that is usable for revision so we will use a cadaver vein and plan for 03/21/2019, for revision of his in situ vein bypass. His toe does not smell good. We will add some anaerobic coverage to cover his wound. Dr. Small is to cover the weekend. cc: Momo Goins MD
[2019-03-18] MEDS: LIBRIUM PO SCH ×3 (00:58→17:22)
[2019-03-18] MEDS: NORCO-10 PO PRN ×6 (00:59→22:27)
[2019-03-18] MEDS: CLINDAMYCIN 900 MG/D5W 900 MG/50 ML IVPB IV SCH ×3 (01:00→17:23)
[2019-03-18] MEDS: PRILOSEC PO SCH ×2 (05:07→08:55)
--- NOTE | 2019-03-18 08:48 | PROGRESS NOTE ---
DATE: 03/18/2019 SUBJECTIVE: Mr. Sanderson is doing better. No high-grade fever or chills. Denied any nausea or vomiting. No symptoms suggestive of delirium or alcohol withdrawal. Tolerating antibiotics well. Denied any diarrhea. Plan is to put cadaveric saphenous vein on Wednesday. OBJECTIVE: Vital Signs: His vital signs noted. Neck: Neck is supple. No JVD. Lungs: Bilateral good air entry present. CVS: S1 and S2 heard. Abdomen: Soft, nontender. Bowel sounds present. PACK ROOM OPERATOR: Alert, awake, able to move all 4 limbs. ASSESSMENT AND PLAN: 1. The patient had infected right great toe. 2. Peripheral vascular disease. 3. Hypertension doing better. 4. Alcohol abuse. Overall patient is doing better. We will continue current treatment and close observation. cc: MD Momo Meyers MD
[2019-03-18] MEDS: NORVASC PO SCH (08:56)
[2019-03-18] MEDS: ASPIRIN PO SCH (08:56)
[2019-03-18] MEDS: PRINIVIL PO SCH (08:56)
--- NOTE | 2019-03-18 10:42 | PROGRESS NOTE ---
DATE: 03/18/2019 SUBJECTIVE: Mr. Aldair Sanderson is a 64-year-old white male, who has had a right lower extremity femoral distal vein graft for peripheral vascular disease. There are plans on revision of this graft this coming week by Dr. Goins. He does have a wound involving his right foot and that is being cared for with dressings and IV antibiotics. His heart rate 64, blood pressure 135/63, O2 saturation 97%. He is afebrile. He is tolerating a regular diet. He is on IV clindamycin and vancomycin. He is also on p.o. aspirin and apixaban. PLAN: We will continue IV antibiotics. Right leg wound care with plans for revision of his distal bypass graft right lower extremity this coming week. cc: MD Momo Nixon MD
[2019-03-18] MEDS: M.V.I.-12 10 ML, FOLIC ACID 1 MG, MAGNESIUM SULFATE 1 GM, THIAMINE 100 MG in NS 1,000 ML IV SCH (18:30)
[2019-03-19] MEDS: LIBRIUM PO SCH ×3 (01:10→17:02)
[2019-03-19] MEDS: CLINDAMYCIN 900 MG/D5W 900 MG/50 ML IVPB IV SCH ×3 (01:10→19:30)
[2019-03-19] MEDS: NORCO-10 PO PRN ×4 (02:48→19:28)
[2019-03-19] MEDS: PRILOSEC PO SCH (06:18)
[2019-03-19] MEDS: ASPIRIN PO SCH (08:58)
[2019-03-19] MEDS: PRINIVIL PO SCH (08:59)
[2019-03-19] MEDS: NORVASC PO SCH (08:59)
--- NOTE | 2019-03-19 08:59 | PROGRESS NOTE ---
DATE: 03/19/2019 Mr. Sanderson is status post right femoral to distal arterial bypass graft per Dr. Goins. The distal part of this graft has occluded. He has wounds involving his foot and Dr. Goins plans revision of this bypass graft this coming week. He is receiving wound care and IV antibiotics. His heart rate is 66, blood pressure 146/73, O2 saturation 95%. He is afebrile. He is eating well. He is on vancomycin and lisinopril. cc: MD Momo Nixon MD
--- NOTE | 2019-03-19 10:54 | PROGRESS NOTE ---
DATE: 03/19/2019 SUBJECTIVE: Mr. Sanderson is doing better. He denied any fever or chills. The right foot pain is under control. The patient is on IV antibiotics, tolerating it well. No diarrhea. The patient is scheduled to have surgery on coming Wednesday. OBJECTIVE: Vital signs noted. Neck: Supple. No JVD. Lungs: Bilateral good air entry present. Cardiovascular: S1 and S2 heard. Abdomen: Soft, nontender. Bowel sounds present. Patient does have wound on the right great toe, evidence of vascular compromise, right foot. Central Nervous System: Alert, awake, able to move all 4 limbs. CONSIDERATION: 1. Peripheral vascular disease. 2. Infected wound on the right great toe. 3. Hypertension. 4. Alcohol abuse. Overall patient is doing better. We will continue current treatment and close observation. I am going to check appropriate labs tomorrow. cc: MD Momo Meyers MD
[2019-03-19] MEDS: M.V.I.-12 10 ML, FOLIC ACID 1 MG, MAGNESIUM SULFATE 1 GM, THIAMINE 100 MG in NS 1,000 ML IV SCH (18:19)
[2019-03-20] MEDS: LIBRIUM PO SCH ×3 (01:43→21:38)
[2019-03-20] MEDS: CLINDAMYCIN 900 MG/D5W 900 MG/50 ML IVPB IV SCH ×4 (01:52→17:00)
[2019-03-20] MEDS: NORCO-10 PO PRN ×4 (02:12→18:53)
[2019-03-20] MEDS: PRILOSEC PO SCH (06:02)
[2019-03-20 06:33] LABS: BASO# 0.04 X1000 (0.0-0.2); BASO% 0.3 % (0.0-0.8); EOS% 2.4 % (0.0-10.0); HEMOGLOBIN 14.4 g/dL (14.0-18.0); IMM GRAN# 0.03 X1000 (0.0-0.04); IMM GRAN% 0.2 % (0.0-0.5); LYMPH# 1.86 X1000 (1.2-3.4); LYMPH% 14.7 % (20.5-51.1); MCH 32.1 PG (27-31); MCHC 32.7 g/dL (33-37); MONO# 1.34 X1000 (0.11-0.59); MONO% 10.6 % (1.7-9.3); MPV 10.1 FL (7.4-10.4); NEUT# 9.07 X1000 (1.4-6.5); NEUT% 71.8 % (42.2-75.2); PLT 430 X1000 (130-400); RBC 4.49 XMIL (4.7-6.1); RDW 14.9 % (11.5-14.5); WBC 12.64 X1000 (4.8-10.8)
--- NOTE | 2019-03-20 07:02 | PROGRESS NOTE ---
DATE: 03/20/2019 SUBJECTIVE: Mr. Sanderson is doing better. No unusual chest pain or shortness of breath. Mild cough. No expectoration. The patient is getting IV antibiotics for a nonhealing wound on the right great toe. The patient also has peripheral vascular disease. The patient is scheduled to have cadaveric saphenous vein graft tomorrow for significant peripheral vascular disease. OBJECTIVE: Vital Signs: Noted. Neck: Supple. No JVD. Lungs: Bilateral good air entry present. CVS: S1 and S2 heard. Abdomen: Soft, nontender. Bowel sounds present. Nonhealing ulcer, right great toe. ALLERGY AND IMMUNOLOGY SPECIALIST: Alert, awake. Answering questions fairly well. Laboratory Data: Revealed leukocytosis with a left shift. Electrolyte results are pending. CONSIDERATION: 1. Infected right great toe. 2. Peripheral vascular disease. 3. Hypertension. 4. Alcohol abuse. PLAN: I am going to decrease his Librium to twice a day. Continue rest of the treatment. Close observation. Encourage incentive spirometry. cc: MD Momo Meyers MD
[2019-03-20 07:14] LABS: AGAP 12; ALB/GLOB RATIO 0.8; ALBUMIN 3.3 g/dL (3.5-5.0); ALKALINE PHOSPHATASE 64 U/L (32-122); BUN 11 mg/dL (8-22); CALCIUM 9.1 mg/dL (8.8-10.2); CHLORIDE 101 mmol/L (98-107); COSMO 275; CREATININE 0.9 mg/dL (0.7-1.2); ESTIMATED GFR > 60; GLUCOSE 98 mg/dL (70-104); GOT 17 U/L (10-34); GPT 16 U/L (10-44); POTASSIUM 3.9 mmol/L (3.5-5.1); SODIUM 138 mmol/L (136-145); TCO2 25 mmol/L (25-35); TOTAL BILIRUBIN 0.29 mg/dL (0.20-1.00); TOTAL PROTEIN 7.4 g/dL (6.3-8.3)
[2019-03-20] MEDS: ASPIRIN PO SCH (08:59)
[2019-03-20] MEDS: NORVASC PO SCH (09:00)
[2019-03-20] MEDS: PRINIVIL PO SCH (09:00)
--- NOTE | 2019-03-20 14:17 | GENERAL SURGERY PROGRESS NOTE ---
DATE: 03/20/2019 Mr. Sanderson is afebrile. Hemoglobin 14.4. Chemistry is fine. We have a cadaver saphenous vein ordered to use for a bypass conduit. Discussed the planned procedure once again with revision of his in situ vein bypass and a debridement of his right great toe amputation site. He understands and agrees to proceed. cc: Momo Goins MD
[2019-03-20] MEDS: M.V.I.-12 10 ML, FOLIC ACID 1 MG, MAGNESIUM SULFATE 1 GM, THIAMINE 100 MG in NS 1,000 ML IV SCH (17:51)
[2019-03-21] MEDS: CLINDAMYCIN 900 MG/D5W 900 MG/50 ML IVPB IV SCH ×3 (02:51→17:16)
[2019-03-21] MEDS: PRILOSEC PO SCH (06:00)
[2019-03-21] MEDS: NORCO-10 PO PRN ×3 (06:06→19:56)
[2019-03-21] MEDS: PRINIVIL PO SCH (09:36)
[2019-03-21] MEDS: ASPIRIN PO SCH (09:36)
[2019-03-21] MEDS: NORVASC PO SCH (09:36)
[2019-03-21] MEDS: LIBRIUM PO SCH ×2 (09:36→19:56)
[2019-03-21] MEDS ORDERED: XYLOCAINE-MPF 2% ONE ×2 (09:54→15:45)
[2019-03-21] MEDS ORDERED: SODIUM CHLORIDE 0.9% 10 ML ONE (09:54)
[2019-03-21] MEDS ORDERED: ROBINUL ONE ×3 (09:54→13:26)
[2019-03-21] MEDS ORDERED: FENTANYL ONE (09:56)
[2019-03-21] MEDS ORDERED: DIPRIVAN 1% ONE (09:56)
--- NOTE | 2019-03-21 10:01 | GENERAL SURGERY PROGRESS NOTE ---
DATE: 03/21/2019 He is afebrile. Hemodynamics are good. He is set for surgery today for revision of his bypass and debridement of his toe amputation site. He understands and agrees to proceed. cc: Momo Goins MD
[2019-03-21] MEDS ORDERED: HURRICAINE SPRAY (DOSE) ONE (10:03)
[2019-03-21] MEDS ORDERED: NORCURON ONE (10:04)
[2019-03-21] MEDS ORDERED: STERILE WATER INJ. ONE (10:04)
[2019-03-21] MEDS ORDERED: QUELICIN (DOSE) ONE (10:04)
[2019-03-21] MEDS ORDERED: HEPARIN ONE ×2 (11:55→12:54)
[2019-03-21] MEDS ORDERED: MARCAINE 0.25% PF/EPI 1:200,000 ONE (11:55)
[2019-03-21] MEDS ORDERED: KEFZOL ONE (11:55)
[2019-03-21] MEDS ORDERED: PAPAVERINE ONE (11:55)
[2019-03-21] MEDS ORDERED: NS 1,000 ML ONE (11:55)
[2019-03-21] MEDS ORDERED: NS 500 ML ONE (12:55)
[2019-03-21] MEDS ORDERED: ZOFRAN ONE (13:26)
[2019-03-21] MEDS ORDERED: NEOSTIGMINE ONE (13:47)
[2019-03-21] MEDS ORDERED: DECADRON ONE (13:52)
[2019-03-21] MEDS ORDERED: HEPARIN (DOSE) ONE (13:57)
[2019-03-21 14:13] LABS: URINE SOURCE CATH
[2019-03-21 14:18] LABS: BILIRUBIN URINE NEGATIVE (NEGATIVE); BLOOD URINE NEGATIVE (NEGATIVE); COLOR YELLOW; GLUCOSE URINE NEGATIVE (NEGATIVE); KETONE URINE NEGATIVE (NEGATIVE); LEUKOCYTES URINE NEGATIVE (NEGATIVE); NITRITE URINE NEGATIVE (NEGATIVE); PH URINE 6.5; PROTEIN URINE NEGATIVE (NEGATIVE); SP GRAVITY URINE 1.014; TURBIDITY URINE CLEAR (CLEAR); UR EPITHELIAL CELLS <10 /HPF (<10); URINE BACTERIA NEGATIVE /HPF; URINE RBC <10 /HPF (<10); URINE WBC <10 /HPF (<10); UROBILINOGEN URINE NORMAL (NORMAL)
[2019-03-21] MEDS ORDERED: NEO-SYNEPHRINE ONE (14:43)
[2019-03-21] MEDS: DILAUDID ONE ×2 (16:19→16:22)
--- NOTE | 2019-03-21 17:06 | PROGRESS NOTE ---
DATE: 03/21/2019 SUBJECTIVELY: Mr. Sanderson is doing better. The patient underwent cadaver vein. The patient had surgery today. Tolerated the procedure well. No fever or chills. No nausea or vomiting. OBJECTIVE: Vital Signs: Noted. Neck: Supple. No JVD. Lungs: Bibasilar crepitation. Heart: S1 and S2 heard. Abdomen: Soft, nontender. Bowel sounds present. PADDER CUSHION: Alert, awake, able to move all 4 limbs. LABORATORY DATA: Done yesterday reviewed. The patient had a Donis catheter. CONSIDERATIONS: 1. Peripheral vascular disease, status post cadaver vein transplant for anastomosis. 2. Infected right toe. 3. Hypertension. 4. The patient did have leukocytosis. PLAN: Overall patient is doing better. We will continue current treatment and close observation. cc: MD Momo Meyers MD
[2019-03-21] MEDS: DILAUDID IV PRN ×3 (17:14→23:22)
[2019-03-21] MEDS: M.V.I.-12 10 ML, FOLIC ACID 1 MG, MAGNESIUM SULFATE 1 GM, THIAMINE 100 MG in NS 1,000 ML IV SCH (17:17)
--- NOTE | 2019-03-21 19:07 | OPERATIVE NOTE ---
PROCEDURE DATE: 03/21/2019 PROCEDURE: 1. Revision right in situ vein bypass using a cadaver greater saphenous vein. 2. Excisional debridement of skin, soft tissue, tendon and bone (5 x 3.5 x 1 cm) right great toe amputation site. SURGEON: Momo Goins MD. APPLICATIONS CHEMIST: Dylan Gallo. PREOPERATIVE DIAGNOSIS: Thrombosis in situ vein bypass and ischemic necrosis right great toe amputation site. POSTOPERATIVE DIAGNOSIS: Thrombosis in situ vein bypass and ischemic necrosis right great toe amputation site. DESCRIPTION OF PROCEDURE: Satisfactory general endotracheal anesthesia was achieved, the right leg and foot were prepped and draped in a sterile fashion. We began by incising the skin above the old incision and dissected down to the vein graft. A pulse was noted within the vein graft proximally being kept open by branch. We surrounded it with vessel loops proximally and distally. We then made a longitudinal incision above the ankle and dissected down to the posterior tibial artery and exposed it for about 6 cm to 7 cm. 7000 units of heparin were given systemically. We did pass our DOSICK tunneler from the proximal wound to the distal wound. After the greater saphenous vein had been thawed and prepared was handed to us on the table. We marked it to help avoid twisting it. We did flush it. We then passed it through the DOSICK tunneler from the distal incision to the proximal incision. We then under 2.5 loupe magnification we then occluded flow in the vein graft, made a longitudinal incision used a 3.5 punch and then spatulated the vein graft slightly and then constructed the anastomosis under 2.5 loupe magnification using a 6-0 Prolene stitch. Upon completion we then allowed flow in the vein graft. We did have pulsatile flow at the distal end. We allowed the vein to lengthen a little bit after it was filled with blood and then clamped off the shinnecock vein graft with a vessel loop. Then under 2.5 loupe magnification we incised the posterior tibial artery for a centimeter and a half extending with the Curtis scissors. We then placed a 2 mm Florester inside the artery. We then cut the vein graft which was the larger end actually to match the arteriotomy. We then constructed this anastomosis again under 2.5 loupe magnification with a 6-0 Prolene stitch. As we neared completion we then did allow flow through the vein graft which was satisfactory. We then finished the anastomosis. One additional bleeding point was present right at the toe and this required a couple of extra stitches to achieve complete hemostasis at the toe of the vein graft. We were satisfied with our flow. We then irrigated both wounds with Kefzol-impregnated saline. We closed the proximal wound with interrupted 3-0 Polysorb in the subcutaneous tissue and the skin was closed with aubrey. The distal wound was closed with interrupted 3-0 Polysorb in subcutaneous tissue and the skin was closed with a 4-0 Polysorb subcuticular stitch. We covered these wounds with sterile island dressings. We then turned our attention to the foot exposing it. We then incised the tissue at the edge of the necrotic area and cut it all the way down to the metatarsal. We removed all the skin, soft tissue and tendons that appeared necrotic and we then transected the distal metatarsal with a bone biter removing it. We debrided all the necrotic ischemic and infected tissue away until we got to viable bleeding tissue. After doing that we placed a sterile saline gauze dressing on the wound and then wrapped it with a Kerlix. He tolerated procedure satisfactorily. Estimated loss was 150 mL. He was sent to the recovery room in satisfactory condition. cc: Momo Goins MD MTDD
--- NOTE | 2019-03-21 19:45 | Extremity Venous Study ---
PROCEDURE NAME: Vein Mapping Right GSV - 03/16/2019 REFERRING PHYSICIAN: Momo Goins MD INTERPRETING PHYSICIAN: Momo Goins MD RIVETER AUTOMOBILE BRAKES: Jeanna. FINDINGS: The residual right greater saphenous vein is imaged beginning at zone 6. At zone 6 it is 1.7; zone 7, 1.8; zone 8, 2.1 and appears somewhat thick-walled. The lesser saphenous vein in the same leg shows 1.6 at zone 5, 1.7 at zone 6, 2.2 at zone 7, 2.2 at zone 8. It again appears to be somewhat thick walled. INTERPRETATION: Inadequate distal saphenous veins in the right lower extremity, not amenable to use as a conduit. cc: Momo Goins MD
[2019-03-21] MEDS: ELIQUIS PO SCH ×2 (19:56→22:43)
[2019-03-21] MEDS: PERIDEX MT SCH (19:56)
[2019-03-22] MEDS: NORCO-10 PO PRN ×5 (01:08→20:43)
[2019-03-22] MEDS: CLINDAMYCIN 900 MG/D5W 900 MG/50 ML IVPB IV SCH ×3 (01:08→18:07)
[2019-03-22] MEDS: DILAUDID IV PRN (02:26)
[2019-03-22] MEDS: PERIDEX MT SCH ×3 (04:51→20:43)
--- NOTE | 2019-03-22 06:05 | PROGRESS NOTE ---
DATE: 03/22/2019 SUBJECTIVE: Mr. Sanderson is doing better. He does have some pain at the surgery site. Mild cough. No expectoration or hemoptysis. No high-grade fever or chills. The patient tolerated surgery well. No dysuria or hematuria. OBJECTIVE: Vital Signs: As noted which is stable. Blood pressure 133/72, pulse 66, respirations 17, and temperature 98.6 degrees. HEENT: Pupils are reacting to light. Neck: Supple. No JVD. Lungs: Bilateral good air entry present. CVS: S1 and S2 heard. Abdomen: Soft and nontender. Bowel sounds present. STORE DELI MANAGER: Alert and awake. Answering questions fair. ASSESSMENT AND PLAN: The patient had thrombosis in situ vein bypass and ischemic necroses of the right great toe. The patient underwent revision right in situ vein bypass using cadeveric great saphenous vein. Excisional debridement of skin, soft tissue tendon and bone right great toe amputation site. His other problems include hypertension, alcohol abuse, and peripheral vascular disease. We will continue current treatment. Close observation. I will be out of town until Wednesday morning. Dr. Hughes will see the patient, and then telephone claims representative doctor will see the patient over the weekend. Overall plan discussed with the patient. The patient will go home when it is okay with Dr. Goins. Plan discussed with the patient and he is in agreement. cc: MD Momo Meyers MD MTDD
[2019-03-22 06:35] LABS: BASO# 0.03 X1000 (0.0-0.2); BASO% 0.2 % (0.0-0.8); EOS# 0.05 X1000 (0.0-0.7); EOS% 0.3 % (0.0-10.0); HEMATOCRIT 40.9 % (42.0-52.0); HEMOGLOBIN 13.5 g/dL (14.0-18.0); IMM GRAN# 0.05 X1000 (0.0-0.04); IMM GRAN% 0.3 % (0.0-0.5); LYMPH# 1.49 X1000 (1.2-3.4); LYMPH% 9.3 % (20.5-51.1); MCH 32.3 PG (27-31); MCV 97.8 FL (81-99); MONO# 1.46 X1000 (0.11-0.59); MONO% 9.1 % (1.7-9.3); NEUT# 12.88 X1000 (1.4-6.5); NEUT% 80.8 % (42.2-75.2); PLT 425 X1000 (130-400); RBC 4.18 XMIL (4.7-6.1); RDW 14.8 % (11.5-14.5); WBC 15.96 X1000 (4.8-10.8)
[2019-03-22 06:53] LABS: AGAP 9; BUN 11 mg/dL (8-22); CALCIUM 8.9 mg/dL (8.8-10.2); CHLORIDE 103 mmol/L (98-107); COSMO 279; CREATININE 0.7 mg/dL (0.7-1.2); ESTIMATED GFR > 60; GLUCOSE 132 mg/dL (70-104); POTASSIUM 4.4 mmol/L (3.5-5.1); SODIUM 139 mmol/L (136-145); TCO2 27 mmol/L (25-35)
[2019-03-22] MEDS: PRILOSEC PO SCH (06:55)
[2019-03-22] MEDS: LIBRIUM PO SCH ×2 (11:21→20:43)
[2019-03-22] MEDS: ASPIRIN PO SCH (11:22)
[2019-03-22] MEDS: PRINIVIL PO SCH (11:23)
[2019-03-22] MEDS: ELIQUIS PO SCH ×2 (11:23→23:53)
[2019-03-22] MEDS: NORVASC PO SCH (11:23)
[2019-03-22] MEDS: M.V.I.-12 10 ML, FOLIC ACID 1 MG, MAGNESIUM SULFATE 1 GM, THIAMINE 100 MG in NS 1,000 ML IV SCH (18:07)
--- NOTE | 2019-03-22 18:39 | GENERAL SURGERY PROGRESS NOTE ---
DATE: 03/22/2019 It is 4:00 in the afternoon. Mr. Sanderson does not have any Doppler flow that I can detect in his posterior tibial artery. I think his graft is clotted. Proximal vein graft has a water hammer type sound, so we will do a thrombectomy on him in the morning. I have discussed it with him. He has eaten today. cc: Momo Goins MD
[2019-03-23] MEDS: CLINDAMYCIN 900 MG/D5W 900 MG/50 ML IVPB IV SCH ×3 (02:01→17:40)
[2019-03-23] MEDS: DILAUDID IV PRN ×4 (02:04→17:31)
[2019-03-23] MEDS ORDERED: KEFZOL ONE (07:27)
[2019-03-23] MEDS ORDERED: PAPAVERINE ONE (07:27)
[2019-03-23] MEDS ORDERED: HEPARIN ONE ×2 (07:27)
[2019-03-23] MEDS ORDERED: MARCAINE 0.25% PF/EPI 1:200,000 ONE (07:27)
[2019-03-23] MEDS ORDERED: NS 2,000 ML ONE (07:28)
[2019-03-23] MEDS: PRILOSEC PO SCH (07:32)
[2019-03-23] MEDS ORDERED: DIPRIVAN 1% ONE (07:38)
[2019-03-23] MEDS ORDERED: FENTANYL ONE (07:51)
[2019-03-23] MEDS ORDERED: NEO-SYNEPHRINE ONE (07:54)
[2019-03-23] MEDS: ASPIRIN PO SCH (08:05)
[2019-03-23] MEDS: PRINIVIL PO SCH (08:05)
[2019-03-23] MEDS: PERIDEX MT SCH ×2 (08:05→21:13)
[2019-03-23] MEDS: ELIQUIS PO SCH (08:06)
[2019-03-23] MEDS: NORVASC PO SCH (08:06)
[2019-03-23] MEDS ORDERED: HEPARIN (DOSE) ONE (08:16)
--- NOTE | 2019-03-23 09:50 | OPERATIVE NOTE ---
PROCEDURE DATE: 03/23/2019 PROCEDURE: Thrombectomy right leg vein graft. SURGEON: Momo Goins MD. MANAGER VIDEO: Roly. PREOPERATIVE DIAGNOSIS: Thrombosis right leg vein graft. POSTOPERATIVE DIAGNOSIS: Thrombosis right leg vein graft. DESCRIPTION OF PROCEDURE: Satisfactory general endotracheal anesthesia was achieved, the right leg was prepped and draped in a sterile fashion. The foot was excluded. We removed the aubrey from the proximal incision, and incised the subcuticular stitch of the distal incision. We incised the subcutaneous stitches as well exposing the vein graft both proximally and distally. 7000 units of heparin were given after that had circulated for more than 3 minutes. We did a longitudinal vein graftotomy of the distal incision. We passed our Amanda into the cap[place] band artery and it went all the way into the forefoot. We extracted the clot and got arterial back bleeding. A 2-1/2 probe would go through the anastomosis with no problem. There was noted to be a pulse within the [place] band vein graft in the proximal incision. We then made a transverse vein graftotomy at the proximal cadaver vein graft. We then passed our Amanda proximally and extracted clot from the anastomosis, and it would admit even a 3 probe. We did have antegrade arterial flow then out the vein graftotomy. We then could not passe the 3 Amanda down the vein graft because of the redundancy of the vein graft, but we were able to pass a [address] to the distal hand. We pulled the Amanda up the vein graft extracting the clot within the vein graft. We then flushed it with heparinized saline, and we flushed all the clot out of the vein graft and had heparinized saline flushing all the way through the vein graft distally. We then closed the proximal graftotomy with a 6-0 Prolene under loupe magnification. This then gave us pulsatile flow through the distal vein graftotomy. We clamped off the vein graft distally, and then closed the vein graftotomy distally as well. Then, we allowed flow and we had flow into the [place] band artery pulsatile flow. A small bleeding point at the toe of the vein graft to the artery was closed with a simple 6-0 Prolene stitch. We did have pulsatile flow in the vein graft all the way into the [place] band artery and each of the closures was hemostatic. We then closed the subcutaneous tissue of both wounds with 3-0 Polysorb. We closed the skin of both incisions with aubrey. Sterile dressings were applied. I then exposed the foot and placed a new saline gauze on the great toe amputation site wound. He tolerated the procedure satisfactorily, and was sent to the recovery room in satisfactory condition. cc: Momo Goins MD
[2019-03-23] MEDS: HEPARIN 25,000 UNITS/D5W 25,000 UNIT/250 ML IV.SOLN IV SCH ×2 (10:10→11:05)
[2019-03-23] MEDS: LIBRIUM PO SCH ×2 (11:05→21:13)
--- NOTE | 2019-03-23 11:31 | PROGRESS NOTE ---
DATE: 03/23/2019 Mr. Sanderson who had presented with right great toe and thrombus in the graft and he had a thrombectomy done by Dr. Goins. He has been on heparin drip now. He is feeling better. Vital signs are stable. We will continue with the current management. cc: MD Momo Mercado MD
[2019-03-23] MEDS: NORCO-10 PO PRN ×2 (13:36→18:43)
[2019-03-23] MEDS ORDERED: HEPARIN IV ONE (14:21)
[2019-03-23] MEDS: M.V.I.-12 10 ML, FOLIC ACID 1 MG, MAGNESIUM SULFATE 1 GM, THIAMINE 100 MG in NS 1,000 ML IV SCH (18:43)
[2019-03-24] MEDS: CLINDAMYCIN 900 MG/D5W 900 MG/50 ML IVPB IV SCH ×3 (02:27→17:18)
[2019-03-24] MEDS: PRILOSEC PO SCH ×2 (05:15→06:03)
[2019-03-24] MEDS: HEPARIN 25,000 UNITS/D5W 25,000 UNIT/250 ML IV.SOLN IV SCH ×2 (06:54→07:44)
[2019-03-24] MEDS: NORVASC PO SCH (08:49)
[2019-03-24] MEDS: ASPIRIN PO SCH (08:49)
[2019-03-24] MEDS: PERIDEX MT SCH ×2 (08:49→20:23)
[2019-03-24] MEDS: PRINIVIL PO SCH (08:49)
[2019-03-24] MEDS: NORCO-10 PO PRN ×3 (08:49→20:22)
[2019-03-24] MEDS: LIBRIUM PO SCH ×2 (09:01→20:22)
[2019-03-24] MEDS: DILAUDID IV PRN (11:19)
--- NOTE | 2019-03-24 12:22 | PROGRESS NOTE ---
DATE: 03/24/2019 Mr. Sanderson had a thrombectomy done from the right vein graft yesterday. He has thrombosis in the left vein graft. He is on IV heparin. His toes look somewhat perplexed today. However, he probably already has done his walking today. PTT was 67.2 today. The last CBC revealed a hemoglobin of 13.5 and white count of 15.96. Overall condition is stable. We will continue with the current management. He is on IV clindamycin also. cc: MD Momo Mercado MD
--- NOTE | 2019-03-24 14:08 | GENERAL SURGERY PROGRESS NOTE ---
DATE: 03/24/2019 He is now the day after his thrombectomy, I think 3 days after his primary graft placement. He does have Doppler flow at the posterior tibial artery. His bandages are dry. His wound bandage is changed. We will recheck his labs tomorrow. His PTT is 67. Probably get him arranged to go home on Eliquis as well as aspirin. cc: Momo Goins MD
[2019-03-24] MEDS: M.V.I.-12 10 ML, FOLIC ACID 1 MG, MAGNESIUM SULFATE 1 GM, THIAMINE 100 MG in NS 1,000 ML IV SCH (17:18)
[2019-03-25] MEDS: CLINDAMYCIN 900 MG/D5W 900 MG/50 ML IVPB IV SCH ×3 (02:07→17:51)
[2019-03-25] MEDS: NORCO-10 PO PRN ×4 (03:24→21:04)
[2019-03-25] MEDS: HEPARIN 25,000 UNITS/D5W 25,000 UNIT/250 ML IV.SOLN IV SCH ×2 (05:35→23:21)
[2019-03-25] MEDS ORDERED: HEPARIN 25,000 UNITS/D5W 25,000 UNIT/250 ML IV.SOLN IV SCH ×3 (05:37→15:57)
[2019-03-25] MEDS: PRILOSEC PO SCH (06:20)
[2019-03-25] MEDS: DILAUDID IV PRN (06:27)
[2019-03-25 06:37] LABS: BASO# 0.06 X1000 (0.0-0.2); BASO% 0.5 % (0.0-0.8); EOS# 0.23 X1000 (0.0-0.7); EOS% 1.8 % (0.0-10.0); HEMATOCRIT 39.6 % (42.0-52.0); HEMOGLOBIN 12.8 g/dL (14.0-18.0); IMM GRAN# 0.06 X1000 (0.0-0.04); IMM GRAN% 0.5 % (0.0-0.5); LYMPH# 3.45 X1000 (1.2-3.4); LYMPH% 26.9 % (20.5-51.1); MCH 31.7 PG (27-31); MCHC 32.3 g/dL (33-37); MONO# 1.25 X1000 (0.11-0.59); MONO% 9.7 % (1.7-9.3); MPV 9.8 FL (7.4-10.4); NEUT# 7.78 X1000 (1.4-6.5); NEUT% 60.6 % (42.2-75.2); PLT 377 X1000 (130-400); RBC 4.04 XMIL (4.7-6.1); RDW 14.7 % (11.5-14.5); WBC 12.83 X1000 (4.8-10.8)
[2019-03-25] MEDS: ASPIRIN PO SCH (08:58)
[2019-03-25] MEDS: LIBRIUM PO SCH ×2 (08:58→20:59)
[2019-03-25] MEDS: NORVASC PO SCH (08:58)
[2019-03-25] MEDS: PERIDEX MT SCH ×2 (08:59→21:04)
[2019-03-25] MEDS: PRINIVIL PO SCH (08:59)
--- NOTE | 2019-03-25 09:51 | GENERAL SURGERY PROGRESS NOTE ---
DATE: 03/25/2019 Mr. Sanderson' graft is open. He continues to have a good Doppler flow at the posterior tibial position. His great toe amputation site however looks still rather infected and does not show any evidence of granulation as of yet. He may require further debridement. He may ultimately end up with a forefoot amputation. Time will tell. I told him we would switch him to Eliquis at some point. He will be discharged eventually on p.o. anticoagulants. cc: Momo Goins MD
--- NOTE | 2019-03-25 12:55 | PROGRESS NOTE ---
DATE: 03/25/2019 OBJECTIVE: Vital signs stable with temperature 97.6 degrees, heart rate 63, respiration 18, blood pressure 157/75, O2 saturation on room air 96%. LABORATORY DATA: Hemoglobin 12.8, hematocrit 39.6, white blood count 96858 with 61% neutrophils. Right foot is warm to touch including lateral toes. Dr. Goins dressed the wound this morning. Pain is decreasing. He has been ambulating some. He is eating well. He is currently on heparin and aspirin. This will be changed to Eliquis at discharge. PLAN: Continue IV clindamycin. cc: MD Momo Scott MD
[2019-03-25] MEDS ORDERED: HEPARIN IV PRN (15:53)
[2019-03-25] MEDS: M.V.I.-12 10 ML, FOLIC ACID 1 MG, MAGNESIUM SULFATE 1 GM, THIAMINE 100 MG in NS 1,000 ML IV SCH (17:51)
[2019-03-26] MEDS: NORCO-10 PO PRN ×4 (01:03→19:32)
[2019-03-26] MEDS: CLINDAMYCIN 900 MG/D5W 900 MG/50 ML IVPB IV SCH ×3 (02:49→18:28)
[2019-03-26] MEDS: PRILOSEC PO SCH (06:43)
[2019-03-26] MEDS: LIBRIUM PO SCH ×2 (08:58→21:59)
[2019-03-26] MEDS: PERIDEX MT SCH ×2 (08:58→21:59)
[2019-03-26] MEDS: ASPIRIN PO SCH (08:58)
[2019-03-26] MEDS: NORVASC PO SCH (08:58)
[2019-03-26] MEDS: PRINIVIL PO SCH (08:58)
--- NOTE | 2019-03-26 08:59 | PROGRESS NOTE ---
DATE: 03/26/2019 Vital signs stable with temperature 98.4 degrees, heart rate 73, respiration 18, blood pressure 145/60, O2 saturation on room air of 96%. The patient is feeling well. He has been ambulating some. He is eating breakfast well. Chest is clear. Right leg appears about the same. Lateral toes are warm. PLAN: Continue current therapy. cc: MD Momo Scott MD
--- NOTE | 2019-03-26 09:26 | GENERAL SURGERY PROGRESS NOTE ---
DATE: 03/26/2019 SUBJECTIVE: Mr. Sanderson has flow in his graft in his posterior tibial artery detected by Doppler. His great toe wound, however, does not show any improvement. I will re-culture it today and I will expand his antibiotic coverage. He will need further debridement of this wound. We will continue on heparin for now until he is ready for discharge. cc: Momo Goins MD
[2019-03-26] MEDS: ZOSYN 3.375 GM in NS 50 ML IV SCH ×3 (10:54→21:59)
[2019-03-26] MEDS ORDERED: ZOSYN ONE (13:44)
[2019-03-26] MEDS: DILAUDID IV PRN (16:11)
[2019-03-26] MEDS: HEPARIN 25,000 UNITS/D5W 25,000 UNIT/250 ML IV.SOLN IV SCH (16:13)
[2019-03-26] MEDS: M.V.I.-12 10 ML, FOLIC ACID 1 MG, MAGNESIUM SULFATE 1 GM, THIAMINE 100 MG in NS 1,000 ML IV SCH (18:28)
[2019-03-27] MEDS: NORCO-10 PO PRN ×4 (00:09→21:23)
[2019-03-27] MEDS: ZOSYN 3.375 GM in NS 50 ML IV SCH ×4 (00:55→17:08)
[2019-03-27] MEDS: CLINDAMYCIN 900 MG/D5W 900 MG/50 ML IVPB IV SCH ×3 (01:44→18:17)
[2019-03-27] MEDS: DILAUDID IV PRN ×2 (01:48→09:19)
[2019-03-27] MEDS: PRILOSEC PO SCH ×2 (05:31→06:31)
[2019-03-27] MEDS ORDERED: LIBRIUM PO SCH (06:48)
--- NOTE | 2019-03-27 07:52 | PROGRESS NOTE ---
DATE: 03/27/2019 SUBJECTIVE: Mr. Sanderson is doing fair. No high-grade fever or chills. Denied any nausea or vomiting. The patient is on heparin. Patient does have some infection and drainage at the site of her right great toe amputation. Surgeon is planning to do more debridement and re-evaluation of the wound. Patient is on heparin. His antibiotics have being changed to Zosyn and patient is on clindamycin. OBJECTIVE: Vital Signs: Noted. Neck: Supple. No JVD. Lungs: Bibasilar crepitations. Heart: S1 and S2 heard. Abdomen: Soft, nontender. Bowel sounds present. Patient does have evidence of infection at the right great toe amputation. RETAIL STORE ASSISTANT: Alert, awake. Able to move all 4 limbs. CONSIDERATION: 1. Peripheral vascular disease. The patient does have bypass done with cadaveric saphenous vein. The patient is on heparin, broad spectrum antibiotics. 2. Alcohol withdrawal, doing well. I am going to decrease Librium. 3. Hypertension. PLAN: Wound culture result reviewed. Continue pain management and rest of the treatment. cc: MD Momo Meyers MD
[2019-03-27] MEDS: NORVASC PO SCH (09:16)
[2019-03-27] MEDS: ASPIRIN PO SCH (09:16)
[2019-03-27] MEDS: LIBRIUM PO SCH ×2 (09:17→22:16)
[2019-03-27] MEDS: PERIDEX MT SCH ×2 (09:17→21:36)
[2019-03-27] MEDS: PRINIVIL PO SCH (09:17)
[2019-03-27] MEDS: HEPARIN 25,000 UNITS/D5W 25,000 UNIT/250 ML IV.SOLN IV SCH (09:17)
--- NOTE | 2019-03-27 14:55 | GENERAL SURGERY PROGRESS NOTE ---
DATE: 03/27/2019 SUBJECTIVE: His graft remains open. His gram stain shows gram negative rods as well as gram positive cocci. PLAN: We will plan to debride his foot again tomorrow in hopes that we can get back to have to viable tissue the can heal with these antibiotics. I have discussed it with him and he agrees. cc: Momo Goins MD
[2019-03-27] MEDS: M.V.I.-12 10 ML, FOLIC ACID 1 MG, MAGNESIUM SULFATE 1 GM, THIAMINE 100 MG in NS 1,000 ML IV SCH (17:10)
[2019-03-27] MEDS ORDERED: TYLENOL PO PRN (22:38)
[2019-03-28] MEDS: HEPARIN 25,000 UNITS/D5W 25,000 UNIT/250 ML IV.SOLN IV SCH ×2 (02:01→18:01)
[2019-03-28] MEDS: CLINDAMYCIN 900 MG/D5W 900 MG/50 ML IVPB IV SCH ×3 (02:01→17:31)
[2019-03-28] MEDS: ZOSYN 3.375 GM in NS 50 ML IV SCH ×4 (05:46→23:08)
[2019-03-28] MEDS: PRILOSEC PO SCH (06:18)
[2019-03-28] MEDS: NORCO-10 PO PRN ×3 (06:46→21:40)
--- NOTE | 2019-03-28 06:55 | PROGRESS NOTE ---
DATE: 03/28/2019 SUBJECTIVE: Mr. Sanderson is doing fair. The patient does have some pain in the right foot. The patient spiked 102.2 degree temperature at 08:00 in the evening yesterday. He did have some chills. CBC done on 03/25 had leukocytosis. Patient does have mild cough. No expectoration. No hemoptysis. No high-grade fever. No dysuria or hematuria. No diarrhea, blood, or mucus in the stool. The patient is scheduled to have debridement of the wound today. I am trying to taper his Librium. OBJECTIVE: Vital Signs: Vital signs noted. His temperature this morning 98.3, blood pressure 133/70, pulse 66, and respirations 19. Neck: Supple. No JVD. Lungs: Bilateral good air entry present. CVS: S1 and S2 heard. Abdomen: Soft. Nontender. Bowel sounds present. SLABBING MACHINE OPERATOR: Alert, awake, and able to move all 4 limbs. ASSESSMENT AND PLAN: Patient does have infected wound on the right foot. I am going to check appropriate labs. Wound culture is growing gram-negative rods. The patient is on Zosyn. Other problems includes hypertension and chronic obstructive pulmonary disease. cc: MD Momo Meyers MD
--- NOTE | 2019-03-28 07:00 | Diag Imaging Result Doc PS360 ---
EXAM: CHEST-PORTABLE 03/28/2019 HISTORY: sepsis TECHNIQUE: AP portable at 0644 COMMENT: There are bilateral calcified granulomata and calcified node in the right tracheobronchial region. The inspiration is suboptimal. Compared to 12/12/2018 there has been no significant change. IMPRESSION: Granulomatous changes. No evidence of acute disease. Electronically signed by Matty Fontanez 03/28/2019 6:58 AM
[2019-03-28 07:29] LABS: BASO# 0.05 X1000 (0.0-0.2); BASO% 0.4 % (0.0-0.8); EOS% 1.7 % (0.0-10.0); HEMATOCRIT 41.1 % (42.0-52.0); HEMOGLOBIN 13.4 g/dL (14.0-18.0); IMM GRAN# 0.09 X1000 (0.0-0.04); IMM GRAN% 0.8 % (0.0-0.5); LYMPH# 1.61 X1000 (1.2-3.4); LYMPH% 13.7 % (20.5-51.1); MCH 31.7 PG (27-31); MCHC 32.6 g/dL (33-37); MCV 97.2 FL (81-99); MONO# 1.08 X1000 (0.11-0.59); MONO% 9.2 % (1.7-9.3); MPV 9.9 FL (7.4-10.4); NEUT# 8.69 X1000 (1.4-6.5); NEUT% 74.2 % (42.2-75.2); PLT 332 X1000 (130-400); RBC 4.23 XMIL (4.7-6.1); RDW 15.1 % (11.5-14.5); WBC 11.72 X1000 (4.8-10.8)
[2019-03-28 07:49] LABS: AGAP 11; ALB/GLOB RATIO 0.8; ALBUMIN 3.5 g/dL (3.5-5.0); ALKALINE PHOSPHATASE 67 U/L (32-122); BUN 10 mg/dL (8-22); CALCIUM 9.9 mg/dL (8.8-10.2); CHLORIDE 100 mmol/L (98-107); COSMO 275; CREATININE 0.9 mg/dL (0.7-1.2); ESTIMATED GFR > 60; GLUCOSE 104 mg/dL (70-104); GOT 29 U/L (10-34); GPT 37 U/L (10-44); POTASSIUM 4.4 mmol/L (3.5-5.1); SODIUM 138 mmol/L (136-145); TCO2 27 mmol/L (25-35); TOTAL BILIRUBIN 0.39 mg/dL (0.20-1.00); TOTAL PROTEIN 7.7 g/dL (6.3-8.3)
[2019-03-28] MEDS: PRINIVIL PO SCH (09:20)
[2019-03-28] MEDS: NORVASC PO SCH (09:20)
[2019-03-28] MEDS: ASPIRIN PO SCH (09:20)
[2019-03-28] MEDS: DILAUDID IV PRN ×2 (09:31→15:53)
[2019-03-28] MEDS: PERIDEX MT SCH ×2 (09:36→23:08)
[2019-03-28] MEDS: LIBRIUM PO SCH ×2 (09:42→23:08)
[2019-03-28] MEDS ORDERED: XYLOCAINE-MPF 2% ONE (11:26)
[2019-03-28] MEDS ORDERED: ROBINUL ONE (11:26)
[2019-03-28] MEDS ORDERED: FENTANYL ONE (11:27)
[2019-03-28] MEDS ORDERED: DIPRIVAN 1% ONE (11:27)
[2019-03-28 16:15] LABS: URINE SOURCE CLEAN CATCH
[2019-03-28 16:18] LABS: BILIRUBIN URINE NEGATIVE (NEGATIVE); BLOOD URINE NEGATIVE (NEGATIVE); COLOR YELLOW; GLUCOSE URINE NEGATIVE (NEGATIVE); KETONE URINE NEGATIVE (NEGATIVE); LEUKOCYTES URINE NEGATIVE (NEGATIVE); NITRITE URINE NEGATIVE (NEGATIVE); PH URINE 6.5; PROTEIN URINE NEGATIVE (NEGATIVE); SP GRAVITY URINE 1.009; TURBIDITY URINE CLEAR (CLEAR); UR EPITHELIAL CELLS <10 /HPF (<10); URINE BACTERIA NEGATIVE /HPF; URINE RBC <10 /HPF (<10); URINE WBC <10 /HPF (<10); UROBILINOGEN URINE NORMAL (NORMAL)
[2019-03-28] MEDS: M.V.I.-12 10 ML, FOLIC ACID 1 MG, MAGNESIUM SULFATE 1 GM, THIAMINE 100 MG in NS 1,000 ML IV SCH (17:53)
--- NOTE | 2019-03-28 18:38 | OPERATIVE NOTE ---
PROCEDURE DATE: 03/28/2019 PROCEDURE: Excisional debridement of skin, soft tissue, tendon, and bone (4 x 4 cm) right great toe amputation site. SURGEON: Momo Goins MD. CONSUMER SAFETY INSPECTOR: Nova Vega. PREOPERATIVE DIAGNOSIS: Infected right great toe amputation site. POSTOPERATIVE DIAGNOSIS: Infected right great toe amputation site. DESCRIPTION OF PROCEDURE: Satisfactory general anesthesia was achieved. The right foot was prepped and draped in a sterile fashion. We sharply excised skin, soft tissue, tendon down to the metatarsal. All of the necrotic tissue was excised away. We then used a rongeur to rongeur the bone back to viable bone in the mid shaft of the metatarsal. The bleeding was generous and appropriate. We then copiously irrigated the wound. We packed it with saline impregnated gauze x2, followed by sterile 4 x 4s and a sterile Kerlix. He tolerated it well. He was sent to the recovery room in satisfactory condition. cc: Momo Goins MD
[2019-03-29] MEDS: CLINDAMYCIN 900 MG/D5W 900 MG/50 ML IVPB IV SCH (02:57)
[2019-03-29] MEDS: NORCO-10 PO PRN ×4 (03:20→23:33)
[2019-03-29] MEDS: ZOSYN 3.375 GM in NS 50 ML IV SCH ×4 (05:47→23:33)
[2019-03-29] MEDS: PRILOSEC PO SCH ×2 (05:48→06:40)
--- NOTE | 2019-03-29 07:03 | PROGRESS NOTE ---
DATE: 03/29/2019 SUBJECTIVE: Mr. Sanderson is doing better. The patient underwent an excisional debridement of skin, soft tissue, tendon, and bone at right great toe amputation site. Patient tolerated the procedure well. He denied any fever or chills. No chest pain. No nausea or vomiting. No dysuria or hematuria. Known case of hypertension, alcohol abuse, peripheral vascular disease. OBJECTIVE: His vital signs noted. Neck is supple. No JVD. Lungs: Bilateral good air entry present. CVS: S1 and S2 heard. Abdomen: Soft, nontender. Bowel sounds present. Patient does have dressed wound on the right foot. CONCRETE BUILDING ASSEMBLER: Alert, awake. Able to move all 4 limbs. The patient's wound culture result reviewed. Clinically, patient is doing much better. MEDICAL PROBLEMS: Include: 1. Infected wound of right great toe, status post wide excision, debridement, and suturing. 2. Hypertension. 3. History suggestive of chronic obstructive pulmonary disease. PLAN: Blood work, chest x-ray done yesterday noted. We will continue current treatment and close observation. cc: MD Momo Meyers MD
[2019-03-29] MEDS: NORVASC PO SCH (09:35)
[2019-03-29] MEDS: PRINIVIL PO SCH (09:35)
[2019-03-29] MEDS: PERIDEX MT SCH ×2 (09:36→21:27)
[2019-03-29] MEDS: ASPIRIN PO SCH (09:36)
[2019-03-29] MEDS: LIBRIUM PO SCH ×2 (09:36→21:27)
[2019-03-29] MEDS: ELIQUIS PO SCH ×2 (11:16→21:27)
[2019-03-29] MEDS: HEPARIN 25,000 UNITS/D5W 25,000 UNIT/250 ML IV.SOLN IV SCH (13:00)
[2019-03-29] MEDS: M.V.I.-12 10 ML, FOLIC ACID 1 MG, MAGNESIUM SULFATE 1 GM, THIAMINE 100 MG in NS 1,000 ML IV SCH (17:29)
--- NOTE | 2019-03-29 18:16 | GENERAL SURGERY PROGRESS NOTE ---
DATE: 03/29/2019 His wound looks a little bit better today. I will switch him to Mahesh starting today in hopes that we can discharge him tomorrow on p.o. antibiotics. cc: Momo Goins MD
[2019-03-29] MEDS: DILAUDID IV PRN (21:27)
[2019-03-30] MEDS: HEPARIN 25,000 UNITS/D5W 25,000 UNIT/250 ML IV.SOLN IV SCH (03:54)
[2019-03-30] MEDS: NORCO-10 PO PRN ×2 (03:59→10:36)
[2019-03-30] MEDS: PRILOSEC PO SCH (07:05)
[2019-03-30] MEDS: ZOSYN 3.375 GM in NS 50 ML IV SCH (07:05)
[2019-03-30] MEDS: DILAUDID IV PRN (07:06)
[2019-03-30 07:29] VITALS: BP 147/67
--- NOTE | 2019-03-30 09:22 | PROGRESS NOTE ---
DATE: 03/30/2019 SUBJECTIVE: Mr. Sanderson is doing better. No fever or chills. Denied any nausea or vomiting. No unusual cough or expectoration. No dysuria or hematuria. Overall, patient is doing better. OBJECTIVE: His vital signs are noted. Blood pressure 151/72, pulse 63, respirations 18, and temperature 97.5 degrees.Skin: No rash. Dressed wound on the right foot. Neck: Supple. No JVD. Lungs: Bilateral good air entry present. CVS: S1 and S2 heard. Abdomen: Soft, scaphoid. Bowel sounds present. SOFTWARE SOLUTIONS ARCHITECT: Alert and awake. Answering questions well. CONSIDERATION: 1. Peripheral vascular disease. 2. Infected right foot clinically doing better. Wound culture grew Enterobacter cloacae which is sensitive to multiple antibiotics except Kefzol. 3. Alcohol abuse. 4. History suggestive of COPD. 5. Overall, patient is doing better medically. Dr. Goins is following her wound and peripheral vascular disease. I had lengthy discussion with patient about alcohol cessation and fall precautions, proper wound care. Follow up with me in 10 days. Explained to him the risk of anticoagulation and precautions. The patient understood and agreed. cc: MD Momo Meyers MD
[2019-03-30] MEDS: PERIDEX MT SCH (10:35)
[2019-03-30] MEDS: PRINIVIL PO SCH (10:36)
[2019-03-30] MEDS: ELIQUIS PO SCH (10:36)
[2019-03-30] MEDS: ASPIRIN PO SCH (10:36)
[2019-03-30] MEDS: NORVASC PO SCH (10:36)
--- NOTE | 2019-03-30 14:53 | GENERAL SURGERY PROGRESS NOTE ---
DATE: 03/30/2019 SUBJECTIVE: Mr. Sanderson' wound is starting to show some improvement now with a little bit of granulation. His Enterobacter is sensitive to Levaquin and Bactrim. I will send him home on Levaquin once a day. He is to stay on Eliquis 5 mg twice a day. He will change his bandage twice a day using Vashe. He will return to see me in the office in a week. cc: Momo Goins MD
[2019-03-30] MEDS ORDERED: LIBRIUM PO SCH (21:00)
--- NOTE | 2019-04-08 06:23 | DISCHARGE SUMMARY ---
ADMISSION DATE: 03/15/2019 DISCHARGE DATE: 03/30/2019 PRIMARY DISCHARGE DIAGNOSES: 1. Right great toe amputation site infection. 2. Rest ischemia of the right foot. 3. Thrombosis distal in situ vein bypass. PRIMARY PROCEDURES: 1. Revision of the in situ vein bypass using a cadaver vein along with excisional debridement of the right great toe. 2. Thrombosis of the right cadaveric vein bypass. CONSULTATIONS: A call to Dr. Pinon. HISTORY: A 64-year-old who had had a previous in situ vein bypass with amputation of his great toe. The distal vein bypass had sclerosed. The proximal vein bypass was patent due to a fistula. He was admitted and placed on IV antibiotics for his right great toe infection. It became evident that we would have to revise this with a cadaveric vein which we did order from the [facility]. He was taken to the operating room on 03/21, and underwent revision with the vein graft extending down to the posterior tibial artery near the ankle. We excisionally debrided his right great toe amputation site at that time. Two days later, he was discovered to have thrombosis so he was taken back to the operating room and underwent thrombectomy of the vein graft. After this, he was left on heparin to keep it open. Postoperatively, he did maintain patency of the vein graft. The great toe amputation site showed progress. The cultures actually grew a gram-negative addison Enterobacter so we switched him from gram-positive coverage to gram-negative coverage. By 03/30, he had a patent vein bypass to his posterior tibial artery with the resolution of his rest pain. He had improvement in the great toe amputation site. He was discharged home on Levaquin and Charles gauze to be changed twice a day. He will be maintained on Eliquis as well as the usual other medicines. He will return to see me in the office in a week for followup. cc: MD Dante Isabel MD
== END 2019-03-30 13:56 | disposition home or self-care (01) | DRG 253 ==
LOC: DIRADM 10:49 → 4N 11:03
PROVIDERS: ADMIT Surgery; ATTEND Surgery
CPT/HCPCS: 71010; 71045; 75635; 80048; 80053; 81001; 82948; 83735; 85025; 85027; 85651; 85730; 86850; 86900; 86901; 87070; 87077; 87186; 88304; 93005; 93010; 93971; 94760; 94761; 94799; A9270; J0330; J0690; J1100; J1170; J1644; J2370; J2405; J2440; J2543; J3010; J3370; J3411; J3475; J7030; J7050; Q9967; S0020; XXXXX

== ENCOUNTER 2019-10-24 09:22 | Inpatient (IN) ==
--- NOTE | 2019-10-24 10:40 | EKG Report ---
Test Performed on : 10/24/2019 10:28:12 AM Test Reason : htn Blood Pressure : / mmHG Vent. Rate : 093 BPM Atrial Rate : 093 BPM P-R Int : 196 ms QRS Dur : 082 ms QT Int : 342 ms P-R-T Axes : 039 023 051 degrees QTc Int : 425 ms Sinus rhythm. with premature atrial complexes. Nonspecific ST abnormality Abnormal ECG When compared with ECG of 15-MAR-2019 16:51, premature atrial complexes. are now present Confirmed by Salma Laughlin MD ([id number]) on 10/25/2019 12:15:07 PM
--- NOTE | 2019-10-24 10:56 | Diag Imaging Result Doc PS360 ---
EXAM: ABDOMEN FLAT/UPRIGHT INDICATION: abd pain TECHNIQUE: One view COMPARISON: 10/24/2019 FINDINGS: There are unremarkable bowel gas and stool patterns. There is no obstructive bowel pattern. There is no evidence of large volume free abdominal gas. Cholecystectomy clips are noted. There is no evidence of organomegaly. IMPRESSION: No evidence of acute pathology by plain radiograph. Electronically signed by Norm Park 10/24/2019 10:54 AM
[2019-10-24 11:31] LABS: HEMATOCRIT 45.3 % (42.0-52.0); HEMOGLOBIN 15.1 g/dL (14.0-18.0); MCH 32.7 PG (27-31); MCHC 33.3 g/dL (33-37); MCV 98.1 FL (81-99); MPV 11.5 FL (7.4-10.4); RBC 4.62 XMIL (4.7-6.1); RDW 16.6 % (11.5-14.5); WBC 7.57 X1000 (4.8-10.8)
[2019-10-24] MEDS: CATAPRES PO PRN ×2 (11:31→18:31)
[2019-10-24] MEDS: PROTONIX IV SCH ×2 (11:32→22:59)
[2019-10-24] MEDS: LOVENOX SUBQ SCH (11:32)
[2019-10-24] MEDS: SODIUM CHLORIDE 0.9% INJ SCH (11:32)
[2019-10-24 11:41] LABS: INR 0.98; PROTIME 13.1 Seconds (11.0-16.0)
[2019-10-24 11:42] LABS: PTT 26.4 Seconds (22.3-41.8)
[2019-10-24 11:46] LABS: AGAP 13; ALB/GLOB RATIO 1.3; ALBUMIN 4.4 g/dL (3.5-5.0); ALKALINE PHOSPHATASE 51 U/L (32-122); AMYLASE 40 U/L (20-200); BUN 13 mg/dL (8-22); CALCIUM 9.3 mg/dL (8.8-10.2); CHLORIDE 99 mmol/L (98-107); COSMO 276; CREATININE 1.2 mg/dL (0.7-1.2); ESTIMATED GFR > 60; GLUCOSE 104 mg/dL (70-104); GOT 22 U/L (10-34); GPT 25 U/L (10-44); LIPASE 33 U/L (13-60); POTASSIUM 4.2 mmol/L (3.5-5.1); SODIUM 138 mmol/L (136-145); TCO2 26 mmol/L (25-35); TOTAL PROTEIN 7.7 g/dL (6.3-8.3)
[2019-10-24] MEDS: M.V.I.-12 10 ML, FOLIC ACID 1 MG, MAGNESIUM SULFATE 1 GM, THIAMINE 100 MG in NS 1,000 ML IV SCH (12:35)
[2019-10-24 12:47] LABS: URINE SOURCE CLEAN CATCH
[2019-10-24 12:49] LABS: BILIRUBIN URINE NEGATIVE (NEGATIVE); BLOOD URINE NEGATIVE (NEGATIVE); COLOR STRAW; GLUCOSE URINE NEGATIVE (NEGATIVE); KETONE URINE NEGATIVE (NEGATIVE); LEUKOCYTES URINE NEGATIVE (NEGATIVE); NITRITE URINE NEGATIVE (NEGATIVE); PROTEIN URINE NEGATIVE (NEGATIVE); SP GRAVITY URINE 1.016; TURBIDITY URINE CLEAR (CLEAR); UROBILINOGEN URINE NORMAL (NORMAL)
--- NOTE | 2019-10-24 12:51 | Diag Imaging Result Doc PS360 ---
CT ABD/PELVIS W/PO AND IV CON - 10/24/2019 INDICATION: abd pain COMPARISON: None FINDINGS: There is some trace linear atelectasis in the right lung base. Heart size is normal. There are cholecystectomy clips. There are a few small renal cysts bilaterally. Otherwise abdominal organs are all normal. No bowel obstruction or inflammation. Mild diverticulosis of the descending and sigmoid colon. Normal appendix. Urinary bladder, prostate, and rectum are normal. There is extensive vascular disease of the aorta, pelvic and femoral arteries. There are advanced degenerative changes of the spine. No acute or suspicious bony lesion. IMPRESSION: No acute process. This exam was performed using automated exposure control, adjustment of mA or kV according to patient size, and/or use of iterative reconstruction technique Electronically signed by Juan Bai 10/24/2019 12:49 PM
[2019-10-24 12:52] LABS: UR EPITHELIAL CELLS <10 /HPF (<10); URINE BACTERIA NEGATIVE /HPF; URINE RBC <10 /HPF (<10); URINE WBC <10 /HPF (<10)
[2019-10-24 13:03] LABS: UR AMPHETAMINES QUAL NONE DETECTED (NONE DETECT); UR BARBITUATES QUAL NONE DETECTED (NONE DETECT); UR BENZODIAZEPIN QUAL NONE DETECTED (NONE DETECT); UR CANNABINOIDS QUAL PRESUMPTIVE POSITIVE (NONE DETECT); UR COCAINE QUAL NONE DETECTED (NONE DETECT); UR METHADONE QUAL NONE DETECTED (NONE DETECT); UR OPIATES QUAL NONE DETECTED (NONE DETECT); UR OXYCODONE QUAL NONE DETECTED (NONE DETECT); UR PCP QUAL NONE DETECTED (NONE DETECT)
[2019-10-24] MEDS: LIBRIUM PO SCH ×2 (18:31→22:59)
[2019-10-24] MEDS: NS 1,000 ML IV SCH (18:32)
--- NOTE | 2019-10-24 20:37 | HISTORY AND PHYSICAL ---
CHIEF COMPLAINT: Abdominal pain. HISTORY OF PRESENT ILLNESS: Mr. Sanderson 64-year-old white gentleman not doing well last few days. Complaining of abdominal pain, bloating. Patient described pain as a burning pain. The patient also has heartburn. The patient was taking [id number] Nexium without significant relief. Patient also had some nausea but no vomiting. Epigastric discomfort. The patient was describing discomfort as a tight feeling and at times, bloating. Oral intake was poor. Unquantified weight loss. No bleeding per rectum but at times he did noticed blood when he was cleaning himself after using bathroom. The patient does drink alcohol regularly at least 6 cans of beer a day. The patient claims he does not drink hard liquor. He denied any hematemesis or melena. No history suggestive of NSAID use. Patient was concerned because of his abdominal pain, some nausea. I evaluated patient in the office. He did have emergent hypertension, epigastric tenderness, not responding to Nexium. I decided to admit the patient for further care. The patient denied any typical chest pain or palpitations. Complaining of cough with scanty sputum production. No hemoptysis. No history of unquantified weight gain or weight loss. No gross hematuria or dysuria. The patient does have significant peripheral arterial disease status post bypass He denied any rest pain. PAST MEDICAL HISTORY: Significant for hypertension, COPD, peripheral arterial disease, alcohol abuse, history of vitamin D deficiency, polycythemia. ALLERGIES: Patient is allergic to codeine. PERSONAL HISTORY: Single. The patient does smoke, drinks 6 to 8 cans of beer a day. Fairly independent in activities of daily living. FAMILY HISTORY: Noncontributory. REVIEW OF SYSTEMS: As per HPI. PAST SURGICAL HISTORY: Significant for cholecystectomy, history of tonsillectomy, vascular surgery. PHYSICAL EXAMINATION: GENERAL: Middle-aged white gentleman in mild distress. VITAL SIGNS: 172/98, pulse 97, respiration 22, temperature 98.4 degrees, O2 saturation 96%. SKIN: Normal turgor. No rash or petechiae. Head atraumatic, normocephalic. [place] conjunctivae. Anicteric sclerae. Extraocular muscle movement normal. Fundus cannot be penetrated. Good oral hygiene. No tonsillopharyngeal congestion or exudate. Ears and nose benign. NECK: Supple. No JVD, thyromegaly or lymphadenopathy. CHEST: Bilateral good air entry present. No rales. CARDIOVASCULAR: S1 and S2 heard. No gallop or thrill. ABDOMEN: Soft, globular. Bowel sounds present. Tenderness in the epigastrium. No guarding or rigidity. EXTREMITIES: No cyanosis, clubbing. No acute DVT. Peripheral pulsation intact. FLOORWORKER: Alert, awake, able to move all 4 limbs. Crepitation both the knee joint . LAB DATA: Revealed hemoglobin 15.1, hematocrit 45.3, WBC count 7.57, platelet count 200,000. PT/INR 0.98, PTT was 26.4. Electrolytes were fairly benign. Urinalysis was negative. Urine drug screen was positive for marijuana. Amylase and lipase were normal. I did CT scan of the abdomen and pelvis. There was no acute process. Abdominal x-ray, no evidence of acute pathology by plain radiograph. Patient admitted with abdominal pain, not responding to Nexium. Patient does drink alcohol in moderate to large amount. CONSIDERATION: Gastritis, pancreatitis ruled out by negative amylase and lipase. Also his CT scan was not impressive. Other problems include uncontrolled hypertension, history suggestive of chronic obstructive pulmonary disease, peripheral arterial disease, alcohol abuse. PLAN: Admit patient. Close observation. Appropriate lab. GI consult. Overall plan discussed at length with the patient and he is in agreement. cc: Dante Pinon MD MTDD
[2019-10-24] MEDS ORDERED: LIPITOR PO SCH (21:00)
[2019-10-24] MEDS: LIPITOR PO SCH (22:59)
[2019-10-25] MEDS: NS 1,000 ML IV SCH ×2 (05:19→06:15)
[2019-10-25] MEDS: LIBRIUM PO SCH ×4 (05:19→22:50)
[2019-10-25] MEDS: LOVENOX SUBQ SCH (05:19)
--- NOTE | 2019-10-25 06:53 | PROGRESS NOTE ---
DATE: 10/25/2019 SUBJECTIVE: Mr. Sanderson is doing fair. He denied any vomiting. Still has mild epigastric discomfort, at times heartburn. No hematemesis or melena. The patient admitted with epigastric pain and heartburn not responding to Nexium. The patient does drink 6 cans of beer a day. No typical chest pain or palpitations. The patient did have uncontrolled hypertension. Noncompliant to followup. Past medical history and medications noted. OBJECTIVE: Vital signs: Reviewed. Neck: Neck is supple. No JVD. Lungs: Bilateral good air entry present. CVS: S1 and S2 heard. Abdomen: Soft. No distention. Bowel sounds present. The patient still has mild epigastric tenderness. No guarding or rigidity. Extremities: No cyanosis, clubbing. No acute DVT. 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 CONSIDERATION: 1. Epigastric pain. 2. Pancreatitis ruled out by normal amylase and lipase. CT scan was also unremarkable. Consideration is gastritis, peptic ulcer disease. I am also concerned about esophagitis. 3. Other problems include hypertension, alcohol abuse, chronic obstructive pulmonary disease, hyperlipidemia. I kept the patient n.p.o. The patient has not been seen by GI yet. I will try to call the [facility] again. The patient already had cholecystectomy in the past. cc: Dante Pinon MD
[2019-10-25 08:38] LABS: BASO# 0.04 X1000 (0.0-0.2); BASO% 0.7 % (0.0-0.8); EOS# 0.14 X1000 (0.0-0.7); EOS% 2.3 % (0.0-10.0); HEMATOCRIT 45.5 % (42.0-52.0); HEMOGLOBIN 14.7 g/dL (14.0-18.0); LYMPH# 1.84 X1000 (1.2-3.4); LYMPH% 30.1 % (20.5-51.1); MCHC 32.3 g/dL (33-37); MCV 98.9 FL (81-99); MONO# 0.61 X1000 (0.11-0.59); MPV 11.4 FL (7.4-10.4); NEUT# 3.48 X1000 (1.4-6.5); NEUT% 56.9 % (42.2-75.2); PLT 170 X1000 (130-400); RDW 15.9 % (11.5-14.5); WBC 6.11 X1000 (4.8-10.8)
[2019-10-25 08:54] LABS: AGAP 10; ALB/GLOB RATIO 1.3; ALBUMIN 3.8 g/dL (3.5-5.0); ALKALINE PHOSPHATASE 49 U/L (32-122); BUN 7 mg/dL (8-22); CALCIUM 9.2 mg/dL (8.8-10.2); CHLORIDE 101 mmol/L (98-107); COSMO 274; ESTIMATED GFR > 60; GLUCOSE 106 mg/dL (70-104); GOT 22 U/L (10-34); GPT 23 U/L (10-44); MAGNESIUM 2.1 mg/dL (1.5-2.7); POTASSIUM 3.9 mmol/L (3.5-5.1); SODIUM 138 mmol/L (136-145); TCO2 27 mmol/L (25-35); TOTAL BILIRUBIN 0.96 mg/dL (0.20-1.00); TOTAL PROTEIN 6.7 g/dL (6.3-8.3)
[2019-10-25] MEDS: ASPIRIN PO SCH (09:13)
[2019-10-25] MEDS: NORVASC PO SCH (09:13)
[2019-10-25] MEDS: VITAMIN D PO SCH (09:13)
[2019-10-25] MEDS: PROTONIX IV SCH ×2 (10:46→21:08)
[2019-10-25] MEDS: SODIUM CHLORIDE 0.9% INJ SCH (10:47)
--- NOTE | 2019-10-25 14:18 | GASTROENTEROLOGY CONSULTATION ---
DATE: 10/25/2019 REASON FOR CONSULTATION: Abdominal pain. HISTORY OF PRESENT ILLNESS: This is a 64-year-old, male who reports onset of symptoms for over a month. He has reported mid abdominal pain described as a fullness. He has also reported increased indigestion and heartburn. He takes Nexium at home and if he misses a dose, he has increased reflux and heartburn. He denies vomiting but had some nausea. He also reports bowel urgency. Otherwise, he has noted some occasional bright red blood when he wipes. He reports having a colonoscopy probably about 3 to 5 years ago at [facility]. He thinks Dr. Voss did the procedure. Patient states he has had about 3 colonoscopies in the past. He reports having polyps. The patient has a history of cholecystectomy. PAST MEDICAL HISTORY: Hypertension, COPD, peripheral vascular disease, alcohol abuse, vitamin D deficiency, polycythemia. PAST SURGICAL HISTORY: Cholecystectomy, tonsillectomy, vascular surgery to his right leg by Dr. Goins in 2019. ALLERGIES: Codeine causing nausea and vomiting. HOME MEDICATIONS: Norvasc 5 mg daily, aspirin 81 mg daily, atorvastatin 20 mg every night, vitamin D 5000 units daily, Nexium 40 mg daily. SOCIAL HISTORY: Positive for alcohol use. He drinks about 6 beers every night. Positive for tobacco use. He is single. REVIEW OF SYSTEMS: Per history of present illness. PHYSICAL EXAMINATION: Vital Signs: Temperature 98.0 degrees, pulse 68, respirations 19, blood pressure 175/85. General: Patient is awake and alert, in no acute distress. HEENT: Normocephalic, atraumatic. Pupils equal, round, reactive to light. Sclerae are nonicteric. Respiratory: Lung sounds essentially clear. Cardiovascular: Regular rate and rhythm. Abdomen: Soft. Mild tenderness in the mid to upper abdomen. Positive bowel sounds. Extremities: No lower extremity edema noted. Neurological: Cranial nerves 2-12 grossly intact. Patient is awake and alert, in no acute distress. DIAGNOSTIC RESULTS: Laboratory: Hematology: WBC 6.11, hemoglobin 14.7, hematocrit 45.5, MCV 98.9, platelets 170,000. Coagulation: Prothrombin time 13.1, INR 0.98, PTT 26.4. Chemistry: Sodium 138, potassium 3.9, chloride 101, CO2 of 27, BUN 7, creatinine 1.0, glucose 106. Total bilirubin 0.96, AST 22, ALT 23, alkaline phosphatase 49, amylase 40, lipase 33. Urinalysis was normal. Toxicology was positive for cannabinoids. IMAGING: Abdominal CT scan showed a few small renal cysts. Otherwise no obstruction or inflammation. Mild diverticulosis of the descending and sigmoid colon. Normal appendix. No acute process seen. Abdominal x-ray showed normal bowel gas pattern. No obstructive pattern. History of cholecystectomy. ASSESSMENT AND PLAN: 1. Abdominal pain. 2. Gastroesophageal reflux disease. 3. Bowel urgency. 4. Alcohol abuse. 5. History of cannabinoid use. Continue proton pump inhibitor. We will proceed with esophagogastroduodenoscopy for further evaluation. Patient states he has never had an esophagogastroduodenoscopy before that he knows of. Further plans will be made according to findings. I have discussed the procedure along with benefits and risks with the patient and he wishes to proceed. I have discussed this case with Dr. Hale. Dictated by MAIA Tipton for Luke Hale MD cc: MAIA Hernandez MD Bharat K. Vakharia, MD
[2019-10-25] MEDS: M.V.I.-12 10 ML, FOLIC ACID 1 MG, MAGNESIUM SULFATE 1 GM, THIAMINE 100 MG in NS 1,000 ML IV SCH (14:26)
[2019-10-25] MEDS ORDERED: DIPRIVAN 1% ONE (17:20)
[2019-10-25] MEDS ORDERED: XYLOCAINE-MPF 2% ONE (17:20)
[2019-10-25] MEDS ORDERED: FENTANYL ONE (17:22)
--- NOTE | 2019-10-25 17:38 | ENDOSCOPY OPERATIVE NOTE ---
[facility] ENDOSCOPY OPERATIVE NOTE , PATIENT: Aldair Sanderson ADMISSION DATE: 10/25/2019 MR#: [id number] : 1955 EGD PROCEDURE REPORT PROCEDURE DATE: 10/25/2019 SURGEON: Luke Hale MD STATUS: inpatient MANAGER LAW: Nila Parisi and Nagi Grace PREOPERATIVE DIAGNOSIS: The patient is a 64 yr old male here for an EGD due to abdominal pain in the upper right quadrant. PROCEDURE PERFORMED: EGD w/ biopsy MEDICATIONS: Per Anesthesia TOPICAL ANESTHETIC: none CONSENT: The patient understands the risks and benefits of the procedure and understands that these r isks include, but are not limited to: sedation, allergic reaction, infection, perforation and/or bleeding. Alternative means of evaluation and treatment include, among others: physical exam, x-rays, and/or surgical intervention. The patient elects to proceed with this endoscopic procedure. HISORY AND PHYSICAL: 10/25/2019 DESCRIPTION OF PROCEDURE: During intra-op preparation period all mechanical and medical equipment was checked for proper function. Hand hygiene and appropriate measures for infection prevention was taken. After the risks, benefits and alternatives of the procedure were thoroughly explained, Informed consent was verified, confirmed and timeout was successfully executed by the treatment team. The patient was anesthetized with topical anesthesia and the [id number]-[id number] ([id number]) endoscope was introduced through the mouth and advanced to the second portion of the duoden um. Retroflexion was performed in the stomach and revealed no abnormalities. The gastroscope was then slowly withdraw n and removed. ESOPHAGUS: The mucosa of the esophagus appeared normal. STOMACH: The mucosa of the stomach appeared normal. DUODENUM: Moderate duodenal inflammation was found in the duodenal bulb. Multiple biopsies were perf ormed using cold forceps. Sample sent for histology. SPECIMENS REMOVED: No ADVERSE EVENTS: There were no complications. POSTOPERATIVE DIAGNOSIS: 1. The mucosa of the esophagus appeared normal 2. The mucosa of the stomach appeared normal 3. Duodenal inflammation was found in the duodenal bulb; multiple biopsies were performed RECOMMENDATIONS: 1. Omeprazole (Prilosec) 40mg PO daily 2. Avoid non-steroid anti-inflammatory drugs 3. Follow-up biopsy results in 2 weeks 4. Follow up with GI Doctor in 2 months 5. Transfer to floor REPEAT EXAM: Luke Hale MD eSigned: Luke Hale MD 10/25/2019 5:37 PM cc: Dante Pinon MD PATIENT NAME: Aldair Sanderson MR#: [id number]
[2019-10-25] MEDS ORDERED: NS 1,000 ML IV SCH (20:08)
[2019-10-25] MEDS: LIPITOR PO SCH (21:04)
[2019-10-26] MEDS: PROTONIX IV SCH (01:33)
[2019-10-26] MEDS: CATAPRES PO PRN (04:55)
[2019-10-26] MEDS: LIBRIUM PO SCH (04:55)
[2019-10-26 07:42] VITALS: BP 158/84
[2019-10-26] MEDS: NORVASC PO SCH (08:34)
[2019-10-26] MEDS: VITAMIN D PO SCH (08:34)
[2019-10-26] MEDS: ASPIRIN PO SCH (08:34)
--- NOTE | 2019-10-26 15:06 | GASTROENTEROLOGY PROGRESS NOTE ---
DATE: 10/26/2019 SUBJECTIVE: The patient was sitting up on the side of the bed, dressed. He has discharge orders. He had an EGD yesterday for abdominal pain. Findings showed normal esophagus, normal stomach, duodenal inflammation in the duodenal bulb, with biopsies performed. Biopsy is pending. He was recommended to start Prilosec 40 mg daily, and avoid NSAIDs. The patient states he is still having some abdominal pain. LABORATORY DATA: Hematology: WBC 6.11, hemoglobin 14.7, hematocrit 45.5, MCV 98.9, platelets 170,000. Chemistry: Sodium 138, potassium 3.9, chloride 101, CO2 of 27, BUN 7, creatinine 1.0, glucose 106, calcium 9.2. Magnesium 2.1. Total bilirubin 0.96, AST 22, ALT 23, alkaline phosphatase 49. OBJECTIVE: Vital Signs: Temperature 98 degrees, pulse 67, respirations 20, blood pressure 158/84. General: The patient is awake and alert, sitting on the side of the bed waiting to go home. ASSESSMENT AND PLAN: 1. Abdominal pain. 2. Duodenal inflammation. Pathology is pending. Continue proton pump inhibitor once discharged. Avoid nonsteroidal anti-inflammatory drugs. Recommend that he call to the office in approximately 1 to 2 weeks to get pathology results. Depending on his response, will see back in the office, recommend 2 months, but recommended that he call sooner if his abdominal pain does not improve. Further plans will be made as needed. I have discussed this case with Dr. Hale. Dictated by MAIA Tipton for Luke Hale MD cc: MAIA Hernandez MD Bharat K. Vakharia, MD
--- NOTE | 2019-10-26 22:48 | DISCHARGE SUMMARY ---
ADMISSION DATE: 10/24/2019 DISCHARGE DATE: 10/26/2019 FINAL DISCHARGE DIAGNOSES: 1. Duodenitis. 2. Uncontrolled hypertension. 3. Hyperlipidemia. 4. Peripheral vascular disease. 5. Gastritis. 6. Alcohol abuse. 7. History suggestive of chronic obstructive pulmonary disease (COPD). 8. Vitamin D deficiency. HISTORY OF PRESENT ILLNESS: Mr. Sanderson is a 64-year-old white gentleman admitted with abdominal pain, heartburn, some nausea, not responding to his Nexium. The patient was sick at his stomach. The patient also has, at times, blood in the stool, mainly when he wipes himself. The pain was moderate in intensity. The patient came to office for evaluation. When I checked him, his blood pressure was elevated, decided to admit the patient for further care. The patient was treated with IV fluids, IV proton pump inhibitor. We did CT scan of the abdomen and pelvis, results reviewed. Pancreatitis ruled out by normal amylase and lipase. GI consult obtained. The patient underwent upper GI endoscopy which did reveal significant duodenitis. Clinically, the patient is doing better. At times, his blood pressure was staying high. I had a lengthy discussion with the patient about alcohol cessation, take medicine regularly. Overall the patient is doing better, tolerating food well. Blood And Plasma Laboratory Assistant recommendation noted. PHYSICAL EXAMINATION: His vital signs reviewed. Neck supple, no JVD. Lungs: Bilateral good air entry present. CVS: S1 and S2 heard. Abdomen: Soft, no distention. Bowel sounds present. 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 Discussed at length with the patient smoking and alcohol cessation, take medicine regularly. I added lisinopril. Follow up with me next week. In case of more distress, call us back or go to the emergency room. Monitor blood pressure at home. LABORATORY DATA: Revealed last hemoglobin 14.7, hematocrit 45.5, WBC count 6.11, platelet count 170,000. The rest of the electrolytes were benign. Amylase and lipase were normal. Urine drug screen was positive for marijuana. cc: Dante Pinon MD
== END 2019-10-26 10:16 | disposition home or self-care (01) | DRG 392 ==
LOC: DIRADM 09:22 → EDIPHOLD 10:06 → 3N 14:48
PROVIDERS: ADMIT Internal Medicine; ATTEND Internal Medicine